=== PATIENT | male | born 1945 | race African-American/Black ===

== ENCOUNTER 2020-02-19 08:49 | Outpatient (CLI) | payer MEDICARE ==
--- NOTE | 2020-02-19 10:05 | CT ---
CT CHEST WITHOUT CONTRAST: INDICATION: Atherosclerotic coronary disease is given as the reason for exam. Hypertension. FINDINGS: The lungs are clear of infiltrate. There is no evidence of effusion. Mild interstitial thickening i n the periphery of both lungs is probably chronic. There is mild cardiomegaly and mild vascular engo rgement. There is a 5 mm calcified nodule in the left lower lobe. No other evidence of pulmonary ma ss or nodule. The mediastinum is unremarkable. Images through the upper abdomen unremarkable. Osse ous structures unremarkable. Thoracic vertebrae maintain normal height and alignment. There is prom inent coronary artery calcification seen in all visualized coronary arteries. IMPRESSION: 1. No acute lung process. 2. Mild interstitial thickening, probably chronic. Calcified granuloma in the left lower lobe. POS: AH
== END 2020-02-19 08:50 | disposition home or self-care (01) ==
LOC: BICCT 08:49
PROVIDERS: ATTEND Family Medicine
DX: I25.10 Atherosclerotic heart disease of native coronary artery without angina pectoris (principal); J84.89 Other specified interstitial pulmonary diseases; J84.10 Pulmonary fibrosis, unspecified; Z77.090 Contact with and (suspected) exposure to asbestos
CPT/HCPCS: 71250

== ENCOUNTER 2020-05-10 02:36 | Inpatient (IN) | payer MEDICARE, OTHER ==
[2020-05-10] MEDS ORDERED: Furosemide 40 MG/4 ML VIAL ONE (03:16)
[2020-05-10 03:25] LABS: #Basophils 0.1 thou/uL (0.0-0.2); #Eosinphils 0.4 thou/uL (0.0-0.7); #Monocytes 1.1 thou/uL (0.11-0.59); #Neutrophils 7.7 thou/uL (1.40-6.50); %Basophils 1.1 % (0.0-1.0); %Eosinophils 3.3 % (0.0-10.0); %Lymphocytes 17.8 % (21.0-51.0); %Monocytes 9.4 % (0.0-10.0); %Neutrophils 68.5 % (42.0-75.0); Hemoglobin 11.4 g/dL (14.0-18.0); Mean Corpuscular HGB CONC 33.7 g/dL (32.0-36.0); Mean Corpuscular Hemoglobin 29.1 pg (27.0-31.0); Mean Corpuscular Volume 86.1 fL (78.0-98.0); Mean Platelet Volume 7.1 fL (7.4-10.4); Platelet Count 274 thou/uL (130-400); RBC Distribution Width 13.9 % (11.5-14.5); Red Blood Cell (RBC) Count 3.92 mill/uL (4.70-6.10); White Blood Cell (WBC) Count 11.3 thou/uL (4.8-10.8)
[2020-05-10 03:45] LABS: ALT (SGPT) 18 U/L (8-55); AST (SGOT) 17 U/L (5-34); Albumin 4.3 g/dL (3.4-4.8); Alkaline Phosphatase 115 U/L (40-110); Anion Gap 16 mmol/L (10-20); BUN (Urea Nitrogen) 36 mg/dL (8.4-25.7); Bilirubin, Total 0.8 mg/dL (0.2-1.2); Calc. Creatinine Clearance 0 mL/min (70-130); Calcium 8.9 mg/dL (7.8-10.44); Carbon Dioxide 18 mmol/L (23-31); Chloride 102 mmol/L (98-107); Estimated GFR-MDRD 26; Globulin 2.9 g/dL (2.4-3.5); Glucose 225 mg/dL (83-110); Potassium 3.9 mmol/L (3.5-5.1); Protein, Total 7.2 g/dL (5.8-8.1); Sodium 132 mmol/L (136-145)
[2020-05-10 04:07] LABS: CKMB 2.3 ng/mL (0-6.6)
[2020-05-10] MEDS ORDERED: Enoxaparin Sodium 100 MG/ML SYRINGE ONE (04:08)
[2020-05-10 06:33] VITALS: BMI 31.4
[2020-05-10 07:08] LABS: Troponin I 0.039 ng/mL (< 0.028)
--- NOTE | 2020-05-10 08:01 | RAD ---
EXAM: Single view of the chest HISTORY: Shortness of breath COMPARISON: 06/16/2016 FINDINGS: Single view of the chest shows a normal sized cardiomediastinal silhouette. There are bilat eral lower lobe airspace opacities consistent with infiltrates. Trace bilateral pleural effusions may be present. No acute osseous abnormality. IMPRESSION: Bilateral lower lobe infiltrates
[2020-05-10] MEDS ORDERED: Acetaminophen 325 MG TAB PO PRN (08:25)
[2020-05-10] MEDS ORDERED: Senokot S 8.6-50 MG TAB PO PRN (08:25)
[2020-05-10] MEDS ORDERED: HYDROcodone/Acetaminophen 10/325 mg Tablet PO PRN (08:40)
[2020-05-10] MEDS ORDERED: Dextrose 5% in Water 1,000 ML IV PRN (08:44)
[2020-05-10] MEDS ORDERED: HumaLOG 300 UNITS/3 ML VIAL SC PRN (08:44)
[2020-05-10] MEDS ORDERED: Dextrose 50% Abboject 50 ML SYRINGE SLOW IVP PRN (08:44)
--- NOTE | 2020-05-10 08:56 | PDOC.HHP ---
Hospitalist HPI - History of Present Illness Shortness of breath History of Present Illness: Patient is a 74-year-old male with a history of a prior admission to this facility at which time he had an echocardiogram revealing a preserved ejection fraction but some element of diastolic dysfunction. Patient follows with lineworker at [facility]. He is not sure if he has had any stress testing or echocardiogram since his prior admission here. He also has chronic kidney disease and follows with Dr. Vargas. His primary care provider is Dr. Evans. Patient presented to the emergency department. He tells me that about a week ago he was carrying some groceries and felt some aching in his legs and felt a little short of breath and he rested a bit and felt better. A day or 2 later he decided to go for a walk but was unable to do much because of poor tolerance to the exercise. He blamed both of these issues initially on a bad back. Last night however the patient said he tried to go to bed but was feeling short of breath when lying flat he had some epigastric xiphoid area burning sensation as well when he got up and sat in a recliner for a while he felt better but when he tried to go back to bed the symptoms recurred and therefore he called an ambulance. He specifically says the sensation in the xiphoid area was not "pain". He does not have symptoms sitting upright or at rest. He usually sleeps with 3 pillows. ED Course: In the emergency department the patient was noted to have an elevated d-dimer. He cannot get a VQ scan because of his renal function. He was given a therapeutic dose of Lovenox. He was also felt to possibly have some congestive heart failure with volume overload and was given 1 dose of Lasix. Patient reports that he has voided 3 times since receiving that. Hospitalist ROS - Review of Systems Constitutional: denies: fever, chills Respiratory: reports: shortness of breath. denies: cough Cardiovascular: reports: orthopnea, edema (He reports edema in his lower extremities for about a year). denies: chest pain (Although he did have a burning sensation in the xiphoid area.) Gastrointestinal: denies: nausea, vomiting, abdominal pain Genitourinary: denies: dysuria, frequency, incontinence All other systems reviewed; all pertinent +/- noted in HPI/Subj Hospitalist History - Past Medical History Source: patient Cardiac: reports: CAD (Reports a history of an AK in 1969), HTN, Hyperlipidemia Renal/: reports: Chronic renal failure (Stage IV) Endocrine: reports: Diabetes (Type II) Other Medical History: Allergic rhinitis - Past Surgical History Past Surgical History: reports: Other (Back surgery) - Family History Family History: reports: cardiac disorder (Suspected that both of his parents may have in their 70s of MIs.) - Social History Smoking Status: Never smoker Alcohol: reports: None Drugs: reports: none Living Situation: With Family - Exam General Appearance: NAD, awake alert General - other findings: Obese Eye: PERRL, anicteric sclera ENT: normocephalic atraumatic, no oropharyngeal lesions, moist mucosa Neck: supple, no JVD Heart: RRR, no murmur, no gallops, no rubs, normal peripheral pulses Respiratory: CTAB, no wheezes, no rales, no ronchi, normal chest expansion, no tachypnea, normal percussion Gastrointestinal: soft, non-tender, non-distended, normal bowel sounds, no palpable masses, no hepatomegaly, no splenomegaly, no bruit Extremities: 1+ LE edema (Bilateral lower extremities) Skin: normal turgor, no lesions, no rashes Neurological: cranial nerve grossly intact, normal sensation to touch, no weakness, no focal deficits, no new deficit Musculoskeletal: normal tone, normal strength, no muscle wasting Psychiatric: normal affect, normal behavior, A&O x 3 Hospitalist Results - Labs Result Diagrams: 05/10/20 03:15 05/10/20 03:15 Lab results: WBC 11.3 thou/uL (4.8-10.8) H 05/10/20 03:15 Hgb 11.4 g/dL (14.0-18.0) L 05/10/20 03:15 Hct 33.7 % (42.0-52.0) L 05/10/20 03:15 MCV 86.1 fL (78.0-98.0) 05/10/20 03:15 Plt Count 274 thou/uL (130-400) 05/10/20 03:15 Neutrophils % 68.5 % (42.0-75.0) 05/10/20 03:15 Sodium 132 mmol/L (136-145) L 05/10/20 03:15 Potassium 3.9 mmol/L (3.5-5.1) 05/10/20 03:15 Chloride 102 mmol/L (98-107) 05/10/20 03:15 Carbon Dioxide 18 mmol/L (23-31) L 05/10/20 03:15 BUN 36 mg/dL (8.4-25.7) H 05/10/20 03:15 Creatinine 2.89 mg/dL (0.7-1.3) H 05/10/20 03:15 Glucose 225 mg/dL (83-110) H 05/10/20 03:15 Calcium 8.9 mg/dL (7.8-10.44) 05/10/20 03:15 Total Bilirubin 0.8 mg/dL (0.2-1.2) 05/10/20 03:15 AST 17 U/L (5-34) 05/10/20 03:15 ALT 18 U/L (8-55) 05/10/20 03:15 Alkaline Phosphatase 115 U/L (40-110) H 05/10/20 03:15 CK-MB (CK-2) 2.3 ng/mL (0-6.6) 05/10/20 03:15 Troponin I 0.039 ng/mL (< 0.028) H 05/10/20 06:30 B-Natriuretic Peptide 269.1 pg/mL (0-100) H 05/10/20 03:15 Serum Total Protein 7.2 g/dL (5.8-8.1) 05/10/20 03:15 Albumin 4.3 g/dL (3.4-4.8) 05/10/20 03:15 - EKG Interpretation EKG: Sinus rhythm with no ischemic changes - Radiology Interpretation Chest x-ray Status: image reviewed by me, report reviewed by me (Bilateral lower lobe infiltrates.) Hospitalist H&P A/P - Problem (1) Shortness of breath Code(s): R06.02 - SHORTNESS OF BREATH Status: Acute (2) CKD (chronic kidney disease), stage IV Code(s): N18.4 - CHRONIC KIDNEY DISEASE, STAGE 4 (SEVERE) Status: Acute (3) Pneumonia Code(s): J18.9 - PNEUMONIA, UNSPECIFIED ORGANISM Status: Acute (4) Pulmonary edema Code(s): J81.1 - CHRONIC PULMONARY EDEMA Status: Acute (5) Hyponatremia Code(s): E87.1 - HYPO-OSMOLALITY AND HYPONATREMIA Status: Acute (6) Chest pain Code(s): R07.9 - CHEST PAIN, UNSPECIFIED Status: Acute Qualifiers: Chest pain type: precordial chest pain Qualified Code(s): R07.2 - Precordial pain (7) DM type 2 (diabetes mellitus, type 2) Status: Chronic Qualifiers: Diabetes mellitus terminal supervisor insulin use: unspecified skilled nursing insulin use status Diabetes mellitus complication status: without complication Qualified Code(s): E11.9 - Type 2 diabetes mellitus without complications (8) Dyslipidemia Code(s): E78.5 - HYPERLIPIDEMIA, UNSPECIFIED Status: Chronic (9) HTN (hypertension) Code(s): I10 - ESSENTIAL (PRIMARY) HYPERTENSION Status: Chronic Qualifiers: Hypertension type: essential hypertension Qualified Code(s): I10 - Essential (primary) hypertension (10) History of coronary artery disease Code(s): Z86.79 - PERSONAL HISTORY OF OTHER DISEASES OF THE CIRCULATORY SYSTEM Status: Acute - Plan Plan: Shortness of breath: Several potential possibilities exist. Patient has evidence of bilateral lower lobe infiltrates on chest x-ray. I suspect this is more likely dependent pulmon gurinder edema. However will need to consider that possibility as well. Has an elevated d-dimer which could represent pulmonary embolus or could potentially raise concern for COVID. Oxygen as needed. He has had a therapeutic dose of Lovenox. He is unable to get a CT angiogram of the chest because of his renal function. Have ordered a pulmonary perfusion scan and lower extremity Dopplers. Pneumonia: Again patient has bilateral lower lobe infiltrates. He does not have a cough and his symptoms are not typical of a pneumonia. He has a COVID test pending although the infiltrates do not appear consistent with COVID nor do his symptoms. We will go ahead and cover with some antibiotics. We will treat for community-acquired pneumonia with Rocephin and azithromycin. Will get follow-up chest x-ray after some diuresis. Pulmonary edema: We will concern the infiltrates represent dependent pulmonary edema. He has received a dose of diuretics in the emergency department I will obtain an echocardiogram as this could be some diastolic dysfunction. His ejection fraction in the past has been relatively well-preserved. His BNP was not significantly elevated. However, he does have orthopnea and some peripheral edema. Will obtain records from his lineworker if possible. Coronary artery disease: Patient has a history of an AK in 1969. He did have a negative stress test here several years ago. Will attempt to obtain records from his lineworker office to see if he has had any recent provocative testing. Diabetes: Continue with his usual home medications of Januvia and glipizide. Will continue sliding scale as needed and diabetic diet. Hypertension: Continue with his lisinopril. Hyperlipidemia: Continue atorvastatin at the home dose. Hyponatremia: Likely due to the chronic kidney disease. If there is a component of heart f ailure that could be contributory as well. We will need to look for the underlying issues. PUD prophylaxis: PPI DVT prophylaxis: Patient is currently receiving therapeutic doses of Lovenox for concern for possible PE.
--- NOTE | 2020-05-10 09:36 | ULT ---
EXAM: Bilateral lower extremity venous Doppler US HISTORY: bilateral lower extremity edema and pain FINDINGS: Grayscale, color-flow, Doppler evaluation, spectral analysis of the bilateral lower extremities venou s structures is performed with 2-D imaging. The bilateral common femoral, superficial femoral, popliteal, posterior tibial, proximal greater saphenous and profunda femoral veins are imaged. There is normal luminal compressibility, flow, and augmentation in the visualized deep venous structu res of the bilateral lower extremities. IMPRESSION: No evidence of a deep vein thrombosis in either lower extremity.
[2020-05-10 09:58] LABS: Troponin I 0.072 ng/mL (< 0.028)
[2020-05-10] MEDS ORDERED: Atenolol 50 MG TAB PO SCH (10:00)
[2020-05-10] MEDS ORDERED: Famotidine 20 MG TAB PO SCH (10:00)
[2020-05-10] MEDS ORDERED: Aspirin 81 mg Enteric Coated Tablet PO SCH (10:00)
[2020-05-10] MEDS ORDERED: Furosemide 40 MG TAB PO SCH (10:00)
[2020-05-10] MEDS ORDERED: Lisinopril 20 MG TAB PO SCH (10:00)
[2020-05-10] MEDS ORDERED: Alogliptin 6.25 MG TAB PO SCH (10:00)
[2020-05-10] MEDS ORDERED: NIFEdipine XL 60 MG TAB PO SCH (10:00)
[2020-05-10] MEDS: Famotidine 20 MG TAB PO SCH (10:20)
--- NOTE | 2020-05-10 11:00 | CON ---
DATE OF CONSULTATION: 05/10/2020 CONSULTING PHYSICIAN: Dr. Sorensen. REASON FOR CONSULTATION: Acute kidney injury on chronic kidney disease. REASON FOR ADMISSION: Shortness of breath. HISTORY OF PRESENT ILLNESS: This 74-year-old male with history of coronary artery disease, CKD, hypertension, diabetes, CHF, came to the hospital with shortness of breath and is being treated for CHF exacerbation. The patient does follow with at [facility]. His renal function is slightly off from his normal. He is feeling much better today. No fever or chills. He was having orthopnea at home. No nausea, vomiting, or diarrhea. PAST MEDICAL HISTORY: Positive for coronary artery disease, hypertension, hyperlipidemia, CKD stage 4, type 2 diabetes. PAST SURGICAL HISTORY: Back surgery. HOME MEDICATIONS: Reviewed. ALLERGIES: NO KNOWN DRUG ALLERGIES. SOCIAL HISTORY: No smoking, alcohol, or illicit drug use. FAMILY HISTORY: No history of kidney disease. REVIEW OF SYSTEMS: CONSTITUTIONAL: Negative for weight loss or gain, ability to conduct usual activities. SKIN: Negative for rash, itching. EYES: Negative for double vision, pain. ENT/MOUTH: Negative for nose bleeding, neck stiffness, pain, tenderness. CARDIOVASCULAR: Negative for palpitations, dyspnea on exertion, orthopnea. RESPIRATORY: Negative for shortness of breath, wheezing, cough, hemoptysis, fever or night sweats. GASTROINTESTINAL: Negative for poor appetite, abdominal pain, heartburn, nausea, vomiting, constipation, or diarrhea. GENITOURINARY: Negative for urgency, frequency, dysuria, nocturia. MUSCULOSKELETAL: Negative for pain, swelling. NEUROLOGIC/PSYCHIATRIC: Negative for anxiety, depression. ALLERGY/IMMUNOLOGIC: Negative for skin rash, bleeding tendency. PHYSICAL EXAMINATION: GENERAL: This is a well-built male, in no apparent distress. VITAL SIGNS: Temperature 99, pulse 85, respiratory rate 18, blood pressure 155/80. HEENT: Atraumatic, normocephalic. Oral mucosa moist. NECK: Supple. CV: S1 and S2. Regular rate and rhythm. RESPIRATORY: Clear. GASTROINTESTINAL: Abdomen is soft. MUSCULOSKELETAL: 1+ edema. DERMATOLOGIC: No skin rash. NEUROLOGIC: Alert and awake. PSYCHIATRIC: Mood and affect are normal. LABORATORY DATA: Potassium 3.9, sodium 132, BUN is 36, and creatinine is 2.89. ASSESSMENT AND PLAN: 1. Acute kidney injury on chronic kidney disease stage 4. Renal function close to his baseline. 2. Cardiorenal syndrome. Agree with diuretics as tolerated. 3. Mild anemia. 4. History of hypertension. 5. Edema, controlled. 6. The patient is feeling better, okay with diuretics with close monitoring of renal function and electrolytes. We will recommend to hold lisinopril if renal function shows worsening during diuresis. We will follow. Thank you for the consult. Job ID: [id number]
--- NOTE | 2020-05-10 13:39 | NM ---
NM Lung Perfusion Paticulate HISTORY: Shortness of breath, elevated d-dimer RADIOPHARMACEUTICAL: 5.4 mCi technetium 99m-MAA injected intravenously FINDINGS: Correlation is made with the chest radiograph of the same date. Fairly homogeneous tracer distribution is seen in the lungs bilaterally without pleural-based, wedge- shaped segmental or subsegmental defects. IMPRESSION: No evidence of pulmonary embolism.
[2020-05-10] MEDS ORDERED: hydrALAZINE 20 MG/ML VIAL SLOW IVP PRN (14:28)
[2020-05-10] MEDS: glipiZIDE 5 MG TAB PO SCH (16:57)
[2020-05-10] MEDS: Labetalol HCl 100 MG/20 ML VIAL SLOW IVP PRN ×2 (16:58→21:25)
[2020-05-10 17:18] LABS: SARS-CoV-2 MS2 Positive; SARS-CoV-2 N Gene Negative; SARS-CoV-2 S Gene Negative; SARS-CoV-2 by NAA Not Detected (NotDetected); SARS-CoV-2 orf1ab Negative
[2020-05-10] MEDS: Atorvastatin Calcium 40 MG TAB PO SCH (21:24)
[2020-05-10] MEDS: Montelukast Sodium 10 mg Tablet PO SCH (21:24)
[2020-05-11] MEDS: Lisinopril 20 MG TAB PO SCH (08:20)
[2020-05-11] MEDS: glipiZIDE 5 MG TAB PO SCH ×2 (08:20→18:09)
[2020-05-11] MEDS: Alogliptin 6.25 MG TAB PO SCH (08:20)
[2020-05-11] MEDS: Aspirin 81 mg Enteric Coated Tablet PO SCH (08:20)
[2020-05-11] MEDS: Famotidine 20 MG TAB PO SCH (08:23)
[2020-05-11] MEDS ORDERED: NIFEdipine XL 60 MG TAB PO SCH ×2 (09:00→21:00)
[2020-05-11] MEDS ORDERED: Atenolol 50 MG TAB PO SCH ×2 (09:00→21:00)
--- NOTE | 2020-05-11 11:15 | PRG ---
DATE OF SERVICE: 05/11/2020 SUBJECTIVE: Patient was seen and examined at bedside and overnight events noted. Patient denies any shortness of breath or chest pain or palpitation. No history of nausea or vomiting or diarrhea or fever or chills or cramps. OBJECTIVE: GENERAL: This is a well built male, in no acute distress. VITAL SIGNS: Temperature 98.5. Heart rate 85. Respiratory rate. Blood pressure 156/79. HEENT: Atraumatic, normocephalic. Oral mucosa is moist NECK: Supple. CARDIOVASCULAR: S1, S2 heard. Rate and rhythm regular. RESPIRATORY: Clear to auscultation. GASTROINTESTINAL: Abdomen is soft. MUSCULOSKELETAL: No tenderness. No edema. DERMATOLOGIC: No skin rash. NEUROLOGIC: Alert and awake and oriented X3. No focal neurologic deficits. Moving all the extremities. PSYCHIATRIC: Mood and affect normal. LABORATORY DATA: Not done today. ASSESSMENT AND PLAN: 1. Acute kidney injury on chronic kidney disease stage 4. 2. Cardiorenal syndrome 3. Edema 4. H/o Hypertension 5. Mild anemia Renal function has been stable. Continue diuretics with cautious monitoring of renal function and electrolytes. Avoid nephrotoxins. Monitor labs. We will follow. Job ID: [id number] MTDD
--- NOTE | 2020-05-11 14:08 | EKG ---
Test Reason : SOB Blood Pressure : / mmHG Vent. Rate : 094 BPM Atrial Rate : 094 BPM P-R Int : 162 ms QRS Dur : 096 ms QT Int : 370 ms P-R-T Axes : 031 049 063 degrees QTc Int : 462 ms Sinus rhythm with marked sinus arrhythmia Otherwise normal ECG Confirmed by NII LUCAS ([id number]), website/blog editor LUCIO SHELLEY ([id number]) on 05/11/2020 2:08:35 PM Referred By: Confirmed By:NII LUCAS
[2020-05-11 14:38] LABS: Troponin I 0.093 ng/mL (< 0.028)
[2020-05-11 19:08] LABS: Troponin I 0.075 ng/mL (< 0.028)
--- NOTE | 2020-05-11 20:39 | PDOC.HOSPP ---
- Subjective Encounter Date: 05/11/20 Encounter Time: 14:00 Subjective: pt wants to go home. he feels ok no sob, son at bedside. after explaining that there may be a risk of cardiac ishemia, he agreed to stay further. trop high and needs risk stratification and he said that he does not want nuc stress as he had remotely and did not feel good with that medicien going through [facility]. - Objective Vital Signs & Weight: Vital Signs (12 hours) Temp Pulse Resp BP Pulse Ox 05/11/20 19:42 98.2 F 82 16 158/76 H 98 05/11/20 16:00 97.0 F L 84 17 157/81 H 95 05/11/20 12:00 96.6 F L 86 17 155/81 H 96 Weight Weight 211 lb 1.6 oz I&O: 05/10/20 05/11/20 05/12/20 06:59 06:59 06:59 Intake Total 960 720 Output Total 250 2700 1100 Balance -256 -7293 -268 Result Diagrams: 05/10/20 03:15 05/10/20 03:15 Additional Labs: Accuchecks 05/11/20 05/11/20 05/11/20 20:28 16:08 11:01 POC Glucose 218 H 150 H 187 H 05/11/20 05/10/20 06:06 23:48 POC Glucose 132 H 156 H Hospitalist ROS - Medication Medications: Active Medications Generic Name Dose Route Start Last Admin Trade Name Freq PRN Reason Stop Dose Admin Alogliptin Benzoate 6.25 mg 05/11/20 09:00 05/11/20 08:20 Alogliptin 6.25 Mg Tab PO 6.25 mg DAILY KAMALA Administration Aspirin 81 mg 05/11/20 09:00 05/11/20 08:20 Aspirin 81 Mg Enteric Coated Tablet PO 81 mg DAILY KAMALA Administration Atorvastatin Calcium 40 mg 05/10/20 21:00 05/10/20 21:24 Atorvastatin Calcium 40 Mg Tab PO 40 mg HS KAMALA Administration Famotidine 20 mg 05/10/20 09:00 05/11/20 08:23 Famotidine 20 Mg Tab PO 20 mg DAILY KAMALA Administration Glipizide 5 mg 05/10/20 16:30 05/11/20 18:09 Glipizide 5 Mg Tab PO 5 mg BID-AC KAMALA Administration Labetalol HCl 10 mg 05/10/20 16:42 05/10/20 21:25 Labetalol Hcl 100 Mg/20 Ml Vial SLOW IVP 10 mg Q4H PRN Administration SBP Greater Than 180 Lisinopril 20 mg 05/11/20 09:00 05/11/20 08:20 Lisinopril 20 Mg Tab PO 20 mg DAILY KAMALA Administration Montelukast Sodium 10 mg 05/10/20 21:00 05/10/20 21:24 Montelukast Sodium 10 Mg Tablet PO 10 mg QPM KAMALA Administration - Exam Eye: PERRL ENT: normocephalic atraumatic Heart: RRR Respiratory: CTAB Gastrointestinal: soft, normal bowel sounds Hosp A/P - Plan Shortness of breath: Several potential possibilities exist. Patient has evidence of bilateral lower lobe infiltrates on chest x-ray. I suspect this is more likely dependent pulmonary edema. However will need to consider that possibility as well. Has an elevated d-dimer which could represent pulmonary embolus or could potentially raise concern for COVID. Oxygen as needed. He has had a therapeutic dose of Lovenox. He is unable to get a CT angiogram of the chest because of his renal function. Have ordered a pulmonary perfusion scan and lower extremity Dopplers. Pneumonia: bilateral lower lobe infiltrates. H -Rocephin and azithromycin. -covid neg Pulmonary edema: -diuresis imrpoved his sxs -echo ef 55%- DD - may need po diuresis upon dc as prn, as he has no sxs currently and euvolumic Coronary artery disease: Patient has a history of an NV in 1970. He did have a negative stress test here several years ago. now NSTEMI - neeed to address this prior to dc - as pt not comfortable getting nuc stress, requested cardiology consult for their input; Diabetes: -Januvia and glipizide. - - SSI Hypertension: Continue with his lisinopril. Hyperlipidemia: Continue atorvastatin at the home dose. Hyponatremia: Likely due to the chronic kidney disease. pending cardiol..evaluation.
[2020-05-11] MEDS: Atorvastatin Calcium 40 MG TAB PO SCH (20:43)
[2020-05-11] MEDS: NIFEdipine XL 60 MG TAB PO SCH (20:43)
[2020-05-11] MEDS: Montelukast Sodium 10 mg Tablet PO SCH (20:43)
--- NOTE | 2020-05-12 01:08 | CON ---
DATE OF CONSULTATION: HISTORY: Francisca Huynh is a 74-year-old black male who states in 1979 that he had a myocardial infarction while living in [place]. He apparently underwent cardiac catheterization at that time, but has never had another catheterization. He has had nuclear scans and had one here in May 2016, which revealed no evidence of ischemia. He has been followed by Dr. Rice in the past and was seen in the office up until 2018. However, currently, he sees Dr. [facility] at [facility]. He was doing fairly well except for occasional leg edema until late on the evening of May 09. He was feeling increasingly short of breath and this was worse if he would lie supine in bed. He ultimately called the emergency room and came to the hospital in the heat treater hours of April. He has had mildly elevated troponin I and cardiology consultation was requested. He initially had an elevated D-dime. Due to his chronic kidney disease., he underwent lung scan, which revealed low probability of pulmonary embolism. He also had lower extremity venous ultrasound, which revealed no evidence of deep venous thrombosis. He denies any chest discomfort to me. PAST MEDICAL HISTORY: Hypertension, chronic kidney disease, diabetes, hyperlipidemia, coronary artery disease with history of SD in 1979. OPERATIONS: Back surgery. MEDICATIONS: 1. Allopurinol 300 daily. 2. Xanax 0.5 b.i.d. 3. Aspirin 81 daily. 4. Atenolol 50 daily. 5. Atorvastatin 40 mg at bedtime. 6. Furosemide 20 every other day. 7. Glucotrol 10 mg b.i.d. 8. Lisinopril 20 daily. 9. Singulair 10 mg daily. 10. Nifedipine 60 mg b.i.d. 11. Januvia 25 mg daily. ALLERGIES: NONE. SOCIAL HISTORY: He does not smoke or drink. REVIEW OF SYSTEMS: Unremarkable except as noted above. PHYSICAL EXAMINATION: VITAL SIGNS: 158/76, pulse of 82. On the first day after admission, he diuresed 2700 mL. HEENT: PERRL. NECK: Supple. CHEST: Clear. CARDIAC: S1 and S2 normal without any S3, S4, or murmurs. ABDOMEN: Normal bowel sounds without tenderness, organomegaly. EXTREMITIES: Revealed trace pretibial edema. NEUROLOGIC: Grossly intact. LABORATORY DATA: EKG revealed normal sinus rhythm with sinus arrhythmias, otherwise unremarkable. Echocardiogram was technically difficult. Ejection fraction was 50% to 55% with evidence of diastolic dysfunction. There was mild mitral and tricuspid regurgitation. Hemoglobin 11.4, hematocrit 33.7, white count 11,300, platelets 274,000, D-dimer 1.45. Troponin I is up to 0.093. Sodium 132, potassium 3.9, chloride 102, carbon dioxide 18, BUN 36, creatinine 2.89, BNP 269.2. IMPRESSION: 1. Jroyf-wr-sawiffd diastolic heart failure. 2. History of myocardial infarction in 1979. 3. Hypertension, poorly controlled. 4. Diabetes. 5. Hyperlipidemia. 6. History of coronary artery disease and myocardial infarction. 7. [id number] myocardial infarction type 2 secondary to his renal insufficiency and demand ischemia. RECOMMENDATIONS: The patient continued to be diuresed and probably needs to be on a higher daily dose of furosemide at home. Also, with his current blood pressure and diastolic dysfunction, I will increase the atenolol to 75 mg q.a.m. and this may need to be increased further. We will follow the patient with you. Job ID: [id number] [facility] MED[facility] CENTERKanchan
[2020-05-12 04:54] LABS: Anion Gap 14 mmol/L (10-20); BUN (Urea Nitrogen) 32 mg/dL (8.4-25.7); Calc. Creatinine Clearance 34 mL/min (70-130); Calcium 9.1 mg/dL (7.8-10.44); Carbon Dioxide 18 mmol/L (23-31); Cardiac Risk 3.7 (Less than 4.5); Chloride 108 mmol/L (98-107); Cholesterol 130 mg/dl (< 200 Desired); Estimated GFR-MDRD 29; Glucose 134 mg/dL (83-110); HDL Cholesterol 35 mg/dL (>60 Neg Risk); LDL Cholesterol, Calculated 76 mg/dL; Magnesium 2.3 mg/dL (1.6-2.6); Potassium 4.3 mmol/L (3.5-5.1); Sodium 136 mmol/L (136-145); Triglycerides 95 mg/dL (Less than 150)
[2020-05-12] MEDS: glipiZIDE 5 MG TAB PO SCH (08:23)
[2020-05-12] MEDS: Lisinopril 20 MG TAB PO SCH (08:50)
[2020-05-12] MEDS: Aspirin 81 mg Enteric Coated Tablet PO SCH (08:50)
[2020-05-12] MEDS: NIFEdipine XL 60 MG TAB PO SCH (08:50)
[2020-05-12] MEDS: Alogliptin 6.25 MG TAB PO SCH (08:50)
[2020-05-12] MEDS: Famotidine 20 MG TAB PO SCH (08:50)
[2020-05-12] MEDS ORDERED: NIFEdipine XL 60 MG TAB PO SCH (09:00)
--- NOTE | 2020-05-12 12:35 | PRG ---
DATE OF SERVICE: 05/12/2020 SUBJECTIVE: Patient was seen and examined at bedside and overnight events noted. Patient denies any shortness of breath or chest pain or palpitation. No history of nausea or vomiting or diarrhea or fever or chills or cramps. OBJECTIVE: GENERAL: This is a well-built male, in no apparent distress. VITAL SIGNS: Temperature 97.7. Heart rate 77. Respiratory rate 15. Blood pressure 158/91. HEENT: Atraumatic, normocephalic. Oral mucosa is moist NECK: Supple. CARDIOVASCULAR: S1, S2 heard. Rate and rhythm regular. RESPIRATORY: Clear to auscultation. GASTROINTESTINAL: Abdomen is soft. MUSCULOSKELETAL: No tenderness. No edema. DERMATOLOGIC: No skin rash. NEUROLOGIC: Alert and awake and oriented X3. No focal neurologic deficits. Moving all the extremities. PSYCHIATRIC: Mood and affect normal. LABORATORY DATA: Potassium is 4.3, BUN is 32, creatinine is 2.6. ASSESSMENT AND PLAN: 1. Acute kidney injury on chronic kidney disease stage 4, stable. 2. Edema. 3. Hypertension. 4. Cardiorenal syndrome. 5. Mild anemia. 6. Renal function is stable. We will follow. Job ID: [id number]
[2020-05-12] MEDS ORDERED: Furosemide 20 MG TAB PO SCH ×2 (14:00)
[2020-05-12 17:45] VITALS: BP 149/86; TEMP 98.1
[2020-05-12] MEDS ORDERED: Atorvastatin Calcium 40 MG TAB PO SCH (21:00)
--- NOTE | 2020-05-13 07:01 | DIS ---
DATE OF ADMISSION: 05/10/2020 DATE OF DISCHARGE: 05/12/2020 DISCHARGE DIAGNOSES: 1. Shortness of breath, multifactorial. 2. Pulmonary edema. 3. Coronary artery disease. 4. Type 2 diabetes mellitus. 5. Hypertension. 6. Hyperlipidemia. 7. Hyponatremia, that is resolved. 8. Chronic kidney disease, stage 3/4. 9. Abnormal troponin, type 2 metabolic mismatch, demand ischemia. PERTINENT LAB FINDINGS: A1c 7.0. LDL 76, TSH 2.2. Creatinine improved from 2.8 to 2.63. His baseline creatinine is somewhere between 2.11 to 2.89. PHYSICAL EXAMINATION: On the day of discharge, the patient appeared well. His blood pressure is slightly still labile, but improved overall. He is quite anxious to go home. His family at bedside. Temperature 97.7, pulse 77, blood pressure 158/91 and with a previous reading 135/75. The patient appears well. His lower extremity edema improved. He has no shortness of breath with ambulation. MEDICATIONS: We will continue with his home medication except the following changes; 1. Nifedipine discontinued from 60 twice a day to 30 mg daily. 2. Lisinopril 20 mg discontinued and low dose 5 mg daily given in the context of giving Lasix. 3. Lasix 20 mg twice a day. 4. Atenolol 75 mg daily. Potassium chloride supplement 10 mEq daily prescription given. HOSPITAL COURSE: A 74-year-old male had GA remotely in while he was in [place], presented with shortness of breath. It seems increasing his Lasix improved his symptoms. He had nuclear scan in May 2016 and he was followed in the past by Dr. Rice and Dr. Rajinder Bauer at [facility] lately. His leg edema was worse that improved with IV diuresis. He had elevated troponin 0.07 and 0.09. I checked with airplane navigator for another ischemic workup and it was felt that this could be due to his chronic kidney disease and not ischemia. He had D- dimer elevated. He went through lung scan which revealed low probability for pulmonary embolism. He also had a Doppler negative for DVT. Cardiology recommended increasing the atenolol dose as well as increasing the Lasix dose. With these changes, he will be followed by Dr. Bauer at [facility] in 2 weeks. His echo showed EF of 55% with suggested diastolic dysfunction, hence increased dose in Lasix. DISCHARGE INSTRUCTIONS: Activity as tolerated. Regular diet. Follow up with the primary care physician in 1 week. Follow up with Dr. Bauer in 2 weeks. Discharge time took over 35 minutes. Job ID: [id number] [id number]
[2020-05-13] MEDS ORDERED: Lisinopril 5 MG TAB PO SCH (09:00)
[2020-05-13] MEDS ORDERED: NIFEdipine XL 30 MG TAB PO SCH (09:00)
== END 2020-05-12 16:20 | disposition home or self-care (01) | DRG 280 ==
LOC: ERS 02:36 → 2NO 06:15
PROVIDERS: ADMIT Internal Medicine; ATTEND Internal Medicine
DX: I13.0 Hypertensive heart and chronic kidney disease with heart failure and stage 1 through stage 4 chronic kidney disease, or unspecified chronic kidney disease (principal); J18.9 Pneumonia, unspecified organism; I21.A1 Myocardial infarction type 2; I50.33 Acute on chronic diastolic (congestive) heart failure; N18.4 Chronic kidney disease, stage 4 (severe); E87.1 Hypo-osmolality and hyponatremia; N17.9 Acute kidney failure, unspecified; E78.5 Hyperlipidemia, unspecified; J30.9 Allergic rhinitis, unspecified; I25.10 Atherosclerotic heart disease of native coronary artery without angina pectoris; E11.22 Type 2 diabetes mellitus with diabetic chronic kidney disease; D64.9 Anemia, unspecified; N18.9 Chronic kidney disease, unspecified; E78.00 Pure hypercholesterolemia, unspecified; Z79.899 Other long term (current) drug therapy; I25.2 Old myocardial infarction
CPT/HCPCS: 36415; 36416; 36600; 71045; 78451; 80048; 80053; 80061; 82553; 83036; 83735; 83880; 84443; 84484; 85025; 85379; 87635; 93005; 93306; 93970; 94760; 96372; 96374; A9540; J1650; J1940; U0003

== ENCOUNTER 2021-02-21 01:21 | Emergency (ER) | payer MEDICARE ==
[2021-02-21 02:03] LABS: #Basophils 0.1 thou/uL (0.0-0.2); #Eosinphils 0.3 thou/uL (0.0-0.7); #Lymphocytes 1.4 thou/uL (1.20-3.40); #Monocytes 0.8 thou/uL (0.11-0.59); #Neutrophils 6.6 thou/uL (1.40-6.50); %Basophils 0.5 % (0.0-1.0); %Eosinophils 3.6 % (0.0-10.0); %Lymphocytes 15.5 % (21.0-51.0); %Monocytes 8.5 % (0.0-10.0); %Neutrophils 71.8 % (42.0-75.0); Hemoglobin 12.2 g/dL (14.0-18.0); Mean Corpuscular Volume 88.6 fL (78.0-98.0); Mean Platelet Volume 7.4 fL (7.4-10.4); Platelet Count 253 thou/uL (130-400); RBC Distribution Width 13.8 % (11.5-14.5); Red Blood Cell (RBC) Count 3.94 mill/uL (4.70-6.10); White Blood Cell (WBC) Count 9.2 thou/uL (4.8-10.8)
[2021-02-21] MEDS ORDERED: Aspirin Chewable 81 MG TAB ONE (02:24)
[2021-02-21 02:27] LABS: ALT (SGPT) 14 U/L (8-55); AST (SGOT) 19 U/L (5-34); Albumin 4.2 g/dL (3.4-4.8); Alkaline Phosphatase 109 U/L (40-110); Anion Gap 18 mmol/L (10-20); BUN (Urea Nitrogen) 41 mg/dL (8.4-25.7); Bilirubin, Total 0.4 mg/dL (0.2-1.2); Calc. Creatinine Clearance 0 mL/min (70-130); Calcium 9.4 mg/dL (7.8-10.44); Carbon Dioxide 13 mmol/L (23-31); Chloride 108 mmol/L (98-107); Globulin 3.1 g/dL (2.4-3.5); Glucose 198 mg/dL (83-110); Lipase 23 U/L (8-78); Potassium 4.3 mmol/L (3.5-5.1); Protein, Total 7.3 g/dL (5.8-8.1); Sodium 135 mmol/L (136-145)
[2021-02-21] MEDS ORDERED: Nitroglycerin 2% Ointment 1 INCH/1 GM Packet ONE (03:32)
== END 2021-02-21 04:05 | disposition left against medical advice (07) ==
LOC: ERS 01:21
DX: R07.89 Other chest pain (principal); R06.2 Wheezing; I12.9 Hypertensive chronic kidney disease with stage 1 through stage 4 chronic kidney disease, or unspecified chronic kidney disease; N18.9 Chronic kidney disease, unspecified; E11.22 Type 2 diabetes mellitus with diabetic chronic kidney disease; E78.5 Hyperlipidemia, unspecified; E78.00 Pure hypercholesterolemia, unspecified; R60.0 Localized edema; Z79.82 Long term (current) use of aspirin; Z79.899 Other long term (current) drug therapy
CPT/HCPCS: 36415; 71045; 80053; 83690; 83880; 84484; 85025; 93005

== ENCOUNTER 2021-03-13 12:35 | Outpatient (CLI) | payer MEDICARE | END 2021-03-13 12:36 | disposition home or self-care (01) | LOC: DTY/OP 12:35 | PROVIDERS: ATTEND Family Medicine | DX: E11.22 Type 2 diabetes mellitus with diabetic chronic kidney disease (principal); N18.9 Chronic kidney disease, unspecified | CPT/HCPCS: 97802 ==

== ENCOUNTER 2021-05-07 14:47 | Inpatient (IN) | payer MEDICARE ==
[2021-05-07] MEDS ORDERED: Dextrose 5% in Water 1,000 ML IV PRN (21:02)
[2021-05-07] MEDS ORDERED: Dextrose 50% Abboject 50 ML SYRINGE SLOW IVP PRN (21:02)
[2021-05-07] MEDS ORDERED: Insulin Regular 300 UNITS/3 ML VIAL SC PRN (21:02)
[2021-05-07] MEDS ORDERED: Acetaminophen 325 MG TAB PO PRN (21:09)
[2021-05-07] MEDS ORDERED: Calcium Carbonate 500 MG ChewTAB PO PRN (21:09)
[2021-05-07] MEDS ORDERED: Ondansetron ODT 4 MG TAB PO PRN (21:09)
[2021-05-07] MEDS ORDERED: Ondansetron PF 4 MG/2 ML Vial IVP PRN (21:09)
[2021-05-07] MEDS ORDERED: Senokot S 8.6-50 MG TAB PO PRN (21:09)
[2021-05-07] MEDS ORDERED: Nitroglycerin 0.4 MG TAB (25 Tab Bottle) SL PRN (21:12)
[2021-05-07] MEDS ORDERED: Furosemide 40 MG/4 ML VIAL SLOW IVP SCH (21:15)
[2021-05-07] MEDS ORDERED: cloNIDine 0.1 MG TAB PO PRN (21:18)
[2021-05-07] MEDS ORDERED: NIFEdipine XL 60 MG TAB PO SCH (21:30)
[2021-05-07] MEDS ORDERED: Nitroglycerin 2% Ointment 1 INCH/1 GM Packet TOP SCH (22:00)
[2021-05-07] MEDS: Albumin 25% 25 GM/100 ML BOT IVPB SCH (22:05)
[2021-05-08] MEDS ORDERED: Furosemide 40 MG/4 ML VIAL SLOW IVP SCH ×4 (03:00→10:35)
[2021-05-08] MEDS: Nitroglycerin 2% Ointment 1 INCH/1 GM Packet TOP SCH ×4 (03:16→23:04)
[2021-05-08 04:15] LABS: #Lymphocytes 0.9 thou/uL (1.20-3.40); #Monocytes 1.6 thou/uL (0.11-0.59); #Neutrophils 16.9 thou/uL (1.40-6.50); %Basophils 0.1 % (0.0-1.0); %Eosinophils 0.1 % (0.0-10.0); %Lymphocytes 4.7 % (21.0-51.0); %Monocytes 8.2 % (0.0-10.0); %Neutrophils 86.9 % (42.0-75.0); Hemoglobin 12.4 g/dL (14.0-18.0); Mean Corpuscular HGB CONC 33.6 g/dL (32.0-36.0); Mean Corpuscular Hemoglobin 29.8 pg (27.0-31.0); Mean Corpuscular Volume 88.6 fL (78.0-98.0); Mean Platelet Volume 7.8 fL (7.4-10.4); Platelet Count 285 thou/uL (130-400); RBC Distribution Width 13.5 % (11.5-14.5); Red Blood Cell (RBC) Count 4.17 mill/uL (4.70-6.10); White Blood Cell (WBC) Count 19.4 thou/uL (4.8-10.8)
[2021-05-08] MEDS ORDERED: hydrALAZINE 20 MG/ML VIAL SLOW IVP PRN (04:18)
[2021-05-08] MEDS: Morphine 2 MG/ML VIAL SLOW IVP PRN ×2 (04:24→23:45)
[2021-05-08 04:40] LABS: Carbon Dioxide 17 mmol/L (23-31); Chloride 104 mmol/L (98-107); Potassium 4.3 mmol/L (3.5-5.1); Sodium 139 mmol/L (136-145)
[2021-05-08 04:41] LABS: Anion Gap 22 mmol/L (10-20); BUN (Urea Nitrogen) 47 mg/dL (8.4-25.7); Calc. Creatinine Clearance 24 mL/min (70-130); Calcium 9.7 mg/dL (7.8-10.44); Glucose 223 mg/dL (83-110)
[2021-05-08 05:02] LABS: CKMB 5.5 ng/mL (0-6.6)
[2021-05-08] MEDS: Albumin 25% 25 GM/100 ML BOT IVPB SCH (06:48)
[2021-05-08] MEDS ORDERED: Atenolol 50 MG TAB PO SCH (09:00)
[2021-05-08] MEDS: Aspirin 325 mg Enteric Coated Tablet PO SCH (09:45)
[2021-05-08] MEDS: NIFEdipine XL 60 MG TAB PO SCH ×2 (09:45→23:04)
[2021-05-08] MEDS: Famotidine 20 MG TAB PO SCH (09:45)
[2021-05-08] MEDS: Enoxaparin Sodium 30 MG/0.3 ML SYRINGE SC SCH (09:46)
[2021-05-08] MEDS: Insulin Regular 300 UNITS/3 ML VIAL SC PRN ×2 (09:50→17:09)
[2021-05-08] MEDS ORDERED: Heparin 10,000 UNITS/ 10 ML VIAL ONE (10:33)
[2021-05-08] MEDS ORDERED: Furosemide 100 MG/10 ML VIAL SLOW IVP SCH (10:45)
[2021-05-08] MEDS: Furosemide 100 MG/10 ML VIAL SLOW IVP SCH (14:15)
[2021-05-08 17:27] LABS: Hemoglobin A1c 6.4 % (4.0-6.0)
[2021-05-08 17:49] LABS: Cardiac Risk 2.6 (Less than 4.5)
[2021-05-08 18:31] LABS: HBSAB Concentration Less than 8.00 mIU/mL; Hep B Core Total Ab Non-Reactive (NonReactive); Hep B Core Total Index 0.07 S/CO (0-0.79); Hep B Surf AB Non-Reactive (NonReactive); Hep B Surf Ag Non-Reactive S/CO (NonReactive); Hep C IgG Ab Non-Reactive (NonReactive); Hep C Index 0.07 S/CO (0-0.79)
[2021-05-08 20:39] LABS: Legionella Urinary Ag Negative (Negative); Strep pneumo Urine Ag NEGATIVE (NEGATIVE)
[2021-05-08] MEDS ORDERED: Atorvastatin Calcium 40 MG TAB PO SCH (21:00)
[2021-05-08] MEDS: cefTRIAXone\\ROCEPHIN 1 GM in Sodium Chloride 0.9% 100 ML IVPB SCH (23:03)
[2021-05-08] MEDS: Azithromycin 500 MG in Sodium Chloride 0.9% 250 ML 250 ML IVPB SCH (23:03)
[2021-05-08] MEDS: Atorvastatin Calcium 40 MG TAB PO SCH (23:04)
[2021-05-09 00:57] LABS: Actual Bicarbonate (HCO3a) 19.4 mEq/L (22-28); Base Excess (BEa) -3.3 mEq/L (-2.0 to +3.0); Calcium, Ionized (arterial) 1.09 mmol/L (1.12-1.30); Carboxyhemoglobin (COHb) 0.3 gm% (0.0-3.0); Hemoglobin (Hb) 12.1 g/dL (14.0-18.0); Potassium - ABG Lab 4.41 mmol/L (3.70-5.30); pH, Arterial 7.46 (7.35-7.45)
[2021-05-09 01:03] LABS: O2 Tension (PaO2), arterial 49.5 mmHg (> 70.0); Puncture Site LRA
[2021-05-09 05:21] LABS: Hemoglobin 11.3 g/dL (14.0-18.0); Mean Corpuscular HGB CONC 32.9 g/dL (32.0-36.0); Mean Corpuscular Hemoglobin 29.1 pg (27.0-31.0); Mean Corpuscular Volume 88.3 fL (78.0-98.0); Mean Platelet Volume 7.8 fL (7.4-10.4); Platelet Count 258 thou/uL (130-400); RBC Distribution Width 13.7 % (11.5-14.5); White Blood Cell (WBC) Count 26.9 thou/uL (4.8-10.8)
[2021-05-09 05:45] LABS: ALT (SGPT) 16 U/L (8-55); AST (SGOT) 52 U/L (5-34); Albumin 4.1 g/dL (3.4-4.8); Alkaline Phosphatase 102 U/L (40-110); Anion Gap 22 mmol/L (10-20); BUN (Urea Nitrogen) 51 mg/dL (8.4-25.7); Calc. Creatinine Clearance 18 mL/min (70-130); Calcium 9.2 mg/dL (7.8-10.44); Carbon Dioxide 20 mmol/L (23-31); Chloride 102 mmol/L (98-107); Globulin 2.5 g/dL (2.4-3.5); Glucose 230 mg/dL (83-110); Potassium 4.9 mmol/L (3.5-5.1); Protein, Total 6.6 g/dL (5.8-8.1); Sodium 140 mmol/L (136-145)
[2021-05-09] MEDS: Furosemide 100 MG/10 ML VIAL SLOW IVP SCH (06:02)
[2021-05-09] MEDS: Nitroglycerin 2% Ointment 1 INCH/1 GM Packet TOP SCH ×2 (06:02→16:42)
[2021-05-09 06:40] LABS: Band 1 % (5-11); Lymphocytes 3 % (21-51); MDiff Complete? YES; Monocytes 10 % (0-10); Neutrophil 86 % (42-75); Platelet Morphology Comment Appears Adequate; RBC Morphology Normal
[2021-05-09] MEDS: Insulin Regular 300 UNITS/3 ML VIAL SC PRN (10:54)
[2021-05-09] MEDS ORDERED: Heparin 10,000 UNITS/ 10 ML VIAL ONE (14:46)
[2021-05-09] MEDS: Metoprolol Tartrate 50 MG TAB PO SCH ×2 (16:41→20:39)
[2021-05-09] MEDS: NIFEdipine XL 60 MG TAB PO SCH ×2 (16:41→20:39)
[2021-05-09] MEDS: Aspirin 325 mg Enteric Coated Tablet PO SCH (16:41)
[2021-05-09] MEDS: Enoxaparin Sodium 30 MG/0.3 ML SYRINGE SC SCH (16:41)
[2021-05-09] MEDS: Famotidine 20 MG TAB PO SCH (16:41)
[2021-05-09] MEDS: cefTRIAXone\\ROCEPHIN 1 GM in Sodium Chloride 0.9% 100 ML IVPB SCH (16:42)
[2021-05-09] MEDS: Azithromycin 500 MG in Sodium Chloride 0.9% 250 ML 250 ML IVPB SCH (20:34)
[2021-05-09] MEDS: Atorvastatin Calcium 40 MG TAB PO SCH (20:39)
[2021-05-10] MEDS: Enoxaparin Sodium 30 MG/0.3 ML SYRINGE SC SCH (10:22)
[2021-05-10] MEDS: Aspirin 325 mg Enteric Coated Tablet PO SCH (10:22)
[2021-05-10] MEDS: Famotidine 20 MG TAB PO SCH (10:22)
[2021-05-10] MEDS: Nitroglycerin 2% Ointment 1 INCH/1 GM Packet TOP SCH ×3 (10:22→21:03)
[2021-05-10] MEDS: NIFEdipine XL 60 MG TAB PO SCH ×2 (10:23→21:03)
[2021-05-10] MEDS: Metoprolol Tartrate 50 MG TAB PO SCH ×2 (10:23→21:02)
[2021-05-10 11:23] LABS: ALT (SGPT) 17 U/L (8-55); AST (SGOT) 42 U/L (5-34); Albumin 3.5 g/dL (3.4-4.8); Alkaline Phosphatase 90 U/L (40-110); Anion Gap 19 mmol/L (10-20); BUN (Urea Nitrogen) 56 mg/dL (8.4-25.7); Bilirubin, Total 0.7 mg/dL (0.2-1.2); Calc. Creatinine Clearance 16 mL/min (70-130); Calcium 8.9 mg/dL (7.8-10.44); Carbon Dioxide 25 mmol/L (23-31); Chloride 102 mmol/L (98-107); Globulin 2.4 g/dL (2.4-3.5); Protein, Total 5.9 g/dL (5.8-8.1); Sodium 141 mmol/L (136-145)
[2021-05-10 13:24] LABS: #Lymphocytes 0.8 thou/uL (1.20-3.40); #Neutrophils 16.2 thou/uL (1.40-6.50); %Basophils 0.1 % (0.0-1.0); %Eosinophils 0.1 % (0.0-10.0); %Lymphocytes 4.4 % (21.0-51.0); %Monocytes 10.3 % (0.0-10.0); %Neutrophils 85.1 % (42.0-75.0); Hemoglobin 10.4 g/dL (14.0-18.0); Mean Corpuscular HGB CONC 32.2 g/dL (32.0-36.0); Mean Corpuscular Hemoglobin 28.8 pg (27.0-31.0); Mean Corpuscular Volume 89.6 fL (78.0-98.0); Mean Platelet Volume 8.1 fL (7.4-10.4); Platelet Count 209 thou/uL (130-400); RBC Distribution Width 13.6 % (11.5-14.5)
[2021-05-10] MEDS ORDERED: Heparin 10,000 UNITS/ 10 ML VIAL ONE (14:49)
[2021-05-10] MEDS: cefTRIAXone\\ROCEPHIN 1 GM in Sodium Chloride 0.9% 100 ML IVPB SCH (18:17)
[2021-05-10] MEDS: Atorvastatin Calcium 40 MG TAB PO SCH (21:02)
[2021-05-10] MEDS: Azithromycin 500 MG in Sodium Chloride 0.9% 250 ML 250 ML IVPB SCH (21:30)
[2021-05-11 04:20] LABS: #Eosinphils 0.1 thou/uL (0.0-0.7); #Lymphocytes 0.8 thou/uL (1.20-3.40); #Monocytes 1.6 thou/uL (0.11-0.59); #Neutrophils 13.5 thou/uL (1.40-6.50); %Basophils 0.1 % (0.0-1.0); %Eosinophils 0.4 % (0.0-10.0); %Lymphocytes 5.1 % (21.0-51.0); %Monocytes 9.8 % (0.0-10.0); %Neutrophils 84.6 % (42.0-75.0); Hemoglobin 10.8 g/dL (14.0-18.0); Mean Corpuscular HGB CONC 34.1 g/dL (32.0-36.0); Mean Corpuscular Hemoglobin 30.4 pg (27.0-31.0); Mean Corpuscular Volume 88.9 fL (78.0-98.0); Mean Platelet Volume 8.3 fL (7.4-10.4); Platelet Count 214 thou/uL (130-400); RBC Distribution Width 13.4 % (11.5-14.5); Red Blood Cell (RBC) Count 3.55 mill/uL (4.70-6.10); White Blood Cell (WBC) Count 15.9 thou/uL (4.8-10.8)
[2021-05-11 04:42] LABS: ALT (SGPT) 19 U/L (8-55); AST (SGOT) 30 U/L (5-34); Albumin 3.4 g/dL (3.4-4.8); Alkaline Phosphatase 93 U/L (40-110); Anion Gap 16 mmol/L (10-20); BUN (Urea Nitrogen) 49 mg/dL (8.4-25.7); Bilirubin, Total 0.7 mg/dL (0.2-1.2); Calc. Creatinine Clearance 20 mL/min (70-130); Calcium 8.5 mg/dL (7.8-10.44); Carbon Dioxide 25 mmol/L (23-31); Chloride 100 mmol/L (98-107); Globulin 2.3 g/dL (2.4-3.5); Glucose 235 mg/dL (83-110); Potassium 4.3 mmol/L (3.5-5.1); Protein, Total 5.7 g/dL (5.8-8.1); Sodium 137 mmol/L (136-145)
[2021-05-11] MEDS ORDERED: Communication Order-Pharmacy FS SCH (08:17)
[2021-05-11] MEDS: Nitroglycerin 2% Ointment 1 INCH/1 GM Packet TOP SCH ×3 (10:32→21:51)
[2021-05-11] MEDS: Enoxaparin Sodium 30 MG/0.3 ML SYRINGE SC SCH (10:35)
[2021-05-11] MEDS: Famotidine 20 MG TAB PO SCH (10:36)
[2021-05-11] MEDS: Metoprolol Tartrate 50 MG TAB PO SCH ×2 (10:36→21:48)
[2021-05-11] MEDS: NIFEdipine XL 60 MG TAB PO SCH ×2 (10:37→21:50)
[2021-05-11] MEDS: Insulin Regular 300 UNITS/3 ML VIAL SC PRN ×2 (11:35→17:02)
[2021-05-11] MEDS ORDERED: Heparin 10,000 UNITS/ 10 ML VIAL ONE (14:50)
[2021-05-11] MEDS: cefTRIAXone\\ROCEPHIN 1 GM in Sodium Chloride 0.9% 100 ML IVPB SCH (17:02)
[2021-05-11] MEDS: Azithromycin 500 MG in Sodium Chloride 0.9% 250 ML 250 ML IVPB SCH (21:47)
[2021-05-11] MEDS: Atorvastatin Calcium 40 MG TAB PO SCH (21:48)
[2021-05-11] MEDS: Heparin 5,000 UNITS/ML VIAL SC SCH (22:02)
[2021-05-12 04:34] LABS: #Eosinphils 0.1 thou/uL (0.0-0.7); #Monocytes 1.5 thou/uL (0.11-0.59); #Neutrophils 8.5 thou/uL (1.40-6.50); %Basophils 0.1 % (0.0-1.0); %Eosinophils 1.2 % (0.0-10.0); %Lymphocytes 8.6 % (21.0-51.0); %Monocytes 13.2 % (0.0-10.0); %Neutrophils 76.9 % (42.0-75.0); Hemoglobin 10.5 g/dL (14.0-18.0); Mean Corpuscular HGB CONC 32.7 g/dL (32.0-36.0); Mean Corpuscular Volume 88.8 fL (78.0-98.0); Mean Platelet Volume 8.5 fL (7.4-10.4); Platelet Count 195 thou/uL (130-400); RBC Distribution Width 13.3 % (11.5-14.5); Red Blood Cell (RBC) Count 3.62 mill/uL (4.70-6.10)
[2021-05-12 04:59] LABS: ALT (SGPT) 24 U/L (8-55); AST (SGOT) 30 U/L (5-34); Albumin 3.2 g/dL (3.4-4.8); Alkaline Phosphatase 90 U/L (40-110); Anion Gap 16 mmol/L (10-20); BUN (Urea Nitrogen) 73 mg/dL (8.4-25.7); Bilirubin, Total 0.6 mg/dL (0.2-1.2); Calc. Creatinine Clearance 17 mL/min (70-130); Calcium 8.4 mg/dL (7.8-10.44); Carbon Dioxide 22 mmol/L (23-31); Chloride 98 mmol/L (98-107); Globulin 2.4 g/dL (2.4-3.5); Glucose 232 mg/dL (83-110); Potassium 4.4 mmol/L (3.5-5.1); Protein, Total 5.6 g/dL (5.8-8.1); Sodium 132 mmol/L (136-145)
[2021-05-12] MEDS: Metoprolol Tartrate 50 MG TAB PO SCH (05:28)
[2021-05-12] MEDS ORDERED: Albumin 5% 500 ML ONE (06:30)
[2021-05-12] MEDS ORDERED: Heparin 10,000 UNITS/1 ML VIAL 30,000 UNITS in Sodium Chloride 0.9% 1,000 ML FS SCH (06:45)
[2021-05-12] MEDS ORDERED: Fentanyl 250 MCG/5 ML VIAL ONE (06:53)
[2021-05-12] MEDS ORDERED: Midazolam HCl 5 mg/5 ml Vial ONE (06:53)
[2021-05-12] MEDS ORDERED: Dexmedetomidine 200 MCG/2 ML VIAL ONE (06:54)
[2021-05-12] MEDS ORDERED: Calcium Chloride 1 GM/10 ML Abboject SYRINGE ONE (07:49)
[2021-05-12] MEDS ORDERED: Cardioplegic Soln 1,000 ML BAG ONE (07:49)
[2021-05-12] MEDS ORDERED: Ondansetron PF 4 MG/2 ML Vial ONE (07:49)
[2021-05-12] MEDS ORDERED: Glycopyrrolate 0.2 MG/ML 5 ML SYRINGE ONE (07:49)
[2021-05-12] MEDS ORDERED: Mannitol 12.5 GM/50 ML ONE (07:49)
[2021-05-12] MEDS ORDERED: Potassium Chloride 60 MEQ/30 ML VIAL ONE (07:49)
[2021-05-12] MEDS ORDERED: Sodium Bicarb 50 MEQ/50 ML Abboject 8.4% SYRINGE ONE (07:49)
[2021-05-12] MEDS ORDERED: Lidocaine 1% PF 5 ML VIAL ONE (07:49)
[2021-05-12] MEDS ORDERED: Protamine Sulfate 250 MG/25 ML VIAL ONE (07:49)
[2021-05-12] MEDS ORDERED: Magnesium Sulfate 1 GM/2 ML VIAL ONE (07:49)
[2021-05-12] MEDS ORDERED: PROPOFOL 200 MG/20 ML VIAL ONE (07:49)
[2021-05-12] MEDS ORDERED: Vecuronium 10 MG VIAL ONE (07:49)
[2021-05-12] MEDS ORDERED: PHENYLEPHRINE-NS 100 MCG/ML 10 ML SYRINGE ONE ×2 (07:49→08:47)
[2021-05-12] MEDS ORDERED: Norepinephrine 4 MG/4 ML VIAL ONE (07:49)
[2021-05-12] MEDS ORDERED: Papaverine 60 MG/2 ML VIAL ONE (07:49)
[2021-05-12] MEDS ORDERED: Heparin 5,000 UNITS/ML VIAL ONE (07:49)
[2021-05-12] MEDS ORDERED: Aminocaproic Acid 5 GM/20 ML VIAL ONE (07:49)
[2021-05-12] MEDS ORDERED: Thrombin 5000 UNITS/5 ML VIAL ONE (07:49)
[2021-05-12] MEDS ORDERED: Dexamethasone 20 MG/5 ML VIAL ONE (07:49)
[2021-05-12 11:20] LABS: Glucose 216 mg/dL (83-110)
[2021-05-12 12:21] LABS: Actual Bicarbonate (HCO3a) 21.7 mEq/L (22-28); Base Excess (BEa) -4.4 mEq/L (-2.0 to +3.0); CO2 Tension 44.2 mmHg (35.0-45.0); Calcium, Ionized (arterial) 1.06 mmol/L (1.12-1.30); Carboxyhemoglobin (COHb) 0.6 gm% (0.0-3.0); Hemoglobin (Hb) 11.6 g/dL (14.0-18.0); O2 Tension (PaO2), arterial 63.6 mmHg (> 70.0); Potassium - ABG Lab 4.01 mmol/L (3.70-5.30); pH, Arterial 7.31 (7.35-7.45)
[2021-05-12 12:22] LABS: Puncture Site Arterial Line
[2021-05-12] MEDS ORDERED: Bisacodyl 5 MG TAB PO PRN (13:03)
[2021-05-12] MEDS ORDERED: Promethazine HCl 25 MG/ML VIAL IM PRN (13:03)
[2021-05-12] MEDS ORDERED: Ondansetron PF 4 MG/2 ML Vial IVP PRN (13:03)
[2021-05-12] MEDS ORDERED: Post-Op Insulin Drip Protocol IVPB ONE (13:03)
[2021-05-12] MEDS ORDERED: Guaifenesin DM 100-10/5 ML UDCUP PO PRN (13:03)
[2021-05-12] MEDS ORDERED: Fentanyl 100 MCG/2 ML VIAL SLOW IVP PRN ×2 (13:03)
[2021-05-12] MEDS ORDERED: Morphine 2 MG/ML VIAL SLOW IVP PRN (13:03)
[2021-05-12] MEDS ORDERED: Nitroglycerin 50 MG/250 ML BOT 250 ML IVPB PRN (13:03)
[2021-05-12] MEDS ORDERED: Norepinephrine 8 MG/0.9% NS 250 ML IVPB PRN (13:03)
[2021-05-12] MEDS ORDERED: Hetastarch 6% 500 ML 500 ML IVPB PRN (13:03)
[2021-05-12] MEDS ORDERED: Mag-Al 1200 mg/1200 mg/30 ML UDCUP PO PRN (13:03)
[2021-05-12] MEDS ORDERED: Sodium Chloride 0.9% 1,000 ML IV SCH (13:03)
[2021-05-12] MEDS ORDERED: Bisacodyl 10 MG SUPP PR PRN (13:03)
[2021-05-12] MEDS ORDERED: Acetaminophen 325 MG TAB PO PRN (13:03)
[2021-05-12] MEDS ORDERED: niCARdipine 25 MG in Sodium Chloride 0.9% 250 ML 250 ML IVPB PRN (13:03)
[2021-05-12] MEDS: Heparin 5,000 UNITS/ML VIAL SC SCH (13:29)
[2021-05-12] MEDS: NIFEdipine XL 60 MG TAB PO SCH (13:29)
[2021-05-12] MEDS ORDERED: HUMULIN R 100 UNITS in Sodium Chloride 0.9% 100 ML IVPB SCH (13:30)
[2021-05-12] MEDS: Famotidine 20 MG TAB PO SCH (13:30)
[2021-05-12] MEDS ORDERED: Insulin Regular 300 UNITS/3 ML VIAL SC PRN (13:30)
[2021-05-12] MEDS ORDERED: Dextrose 5% in Water 1,000 ML IV PRN (13:30)
[2021-05-12] MEDS ORDERED: Dextrose 50% Abboject 50 ML SYRINGE SLOW IVP PRN (13:30)
[2021-05-12] MEDS: Nitroglycerin 2% Ointment 1 INCH/1 GM Packet TOP SCH (13:30)
[2021-05-12 13:43] LABS: #Basophils 0.1 thou/uL (0.0-0.2); #Eosinphils 0.3 thou/uL (0.0-0.7); #Lymphocytes 0.9 thou/uL (1.20-3.40); #Monocytes 2.1 thou/uL (0.11-0.59); #Neutrophils 15.2 thou/uL (1.40-6.50); %Basophils 0.3 % (0.0-1.0); %Eosinophils 1.7 % (0.0-10.0); %Lymphocytes 4.6 % (21.0-51.0); %Monocytes 11.2 % (0.0-10.0); %Neutrophils 82.2 % (42.0-75.0); Hemoglobin 11.4 g/dL (14.0-18.0); Mean Corpuscular Hemoglobin 30.8 pg (27.0-31.0); Mean Corpuscular Volume 90.6 fL (78.0-98.0); Mean Platelet Volume 8.8 fL (7.4-10.4); Platelet Count 131 thou/uL (130-400); RBC Distribution Width 13.3 % (11.5-14.5); Red Blood Cell (RBC) Count 3.69 mill/uL (4.70-6.10); White Blood Cell (WBC) Count 18.5 thou/uL (4.8-10.8)
[2021-05-12 13:52] LABS: Anion Gap 13 mmol/L (10-20); BUN (Urea Nitrogen) 66 mg/dL (8.4-25.7); Calc. Creatinine Clearance 20 mL/min (70-130); Calcium 7.4 mg/dL (7.8-10.44); Carbon Dioxide 21 mmol/L (23-31); Chloride 105 mmol/L (98-107); Glucose 110 mg/dL (83-110); Potassium 4.1 mmol/L (3.5-5.1); Sodium 135 mmol/L (136-145)
[2021-05-12 13:56] LABS: INR-International Normal Ratio 1.3; PTT 30.1 sec (22.9-36.1); Prothrombin Time 16.7 sec (12.0-14.7)
[2021-05-12 17:24] LABS: Hemoglobin 13.3 g/dL (14.0-18.0)
[2021-05-12 17:40] LABS: Glucose 204 mg/dL (83-110); Potassium 5.4 mmol/L (3.5-5.1)
[2021-05-12 19:54] LABS: Anion Gap 20 mmol/L (10-20); BUN (Urea Nitrogen) 79 mg/dL (8.4-25.7); Calc. Creatinine Clearance 18 mL/min (70-130); Calcium 8.1 mg/dL (7.8-10.44); Carbon Dioxide 19 mmol/L (23-31); Chloride 103 mmol/L (98-107); Glucose 168 mg/dL (83-110); Potassium 5.1 mmol/L (3.5-5.1); Sodium 137 mmol/L (136-145)
[2021-05-12 20:00] LABS: Actual Bicarbonate (HCO3a) 18.9 mEq/L (22-28); Base Excess (BEa) -4.8 mEq/L (-2.0 to +3.0); CO2 Tension 31.3 mmHg (35.0-45.0); Calcium, Ionized (arterial) 1.07 mmol/L (1.12-1.30); Carboxyhemoglobin (COHb) 0.5 gm% (0.0-3.0); Hemoglobin (Hb) 13.3 g/dL (14.0-18.0); O2 Tension (PaO2), arterial 89.9 mmHg (> 70.0); Potassium - ABG Lab 4.54 mmol/L (3.70-5.30)
[2021-05-12 20:01] LABS: ALV-art Gradient 156.175 mmHg (0-20); Puncture Site Arterial Line
[2021-05-12] MEDS ORDERED: Famotidine/PF 20 mg/2ml Vial SLOW IVP SCH (21:00)
[2021-05-12] MEDS: CEFAZOLIN 2 GM in Premix Bag 1 BAG IVPB SCH (21:38)
[2021-05-13] MEDS: HYDROcodone/Acetaminophen 5/325 mg Tablet PO PRN ×3 (00:12→21:14)
[2021-05-13 03:51] LABS: Anion Gap 20 mmol/L (10-20); BUN (Urea Nitrogen) 83 mg/dL (8.4-25.7); Calc. Creatinine Clearance 18 mL/min (70-130); Calcium 8.3 mg/dL (7.8-10.44); Carbon Dioxide 19 mmol/L (23-31); Chloride 104 mmol/L (98-107); Glucose 120 mg/dL (83-110); Potassium 4.8 mmol/L (3.5-5.1); Sodium 138 mmol/L (136-145)
[2021-05-13 04:37] LABS: Band 1 % (5-11); Hemoglobin 12.8 g/dL (14.0-18.0); Lymphocytes 2 % (21-51); MDiff Complete? YES; Mean Corpuscular HGB CONC 33.8 g/dL (32.0-36.0); Mean Corpuscular Hemoglobin 30.6 pg (27.0-31.0); Mean Corpuscular Volume 90.5 fL (78.0-98.0); Mean Platelet Volume 8.5 fL (7.4-10.4); Monocytes 9 % (0-10); Neutrophil 88 % (42-75); Platelet Count 167 thou/uL (130-400); Platelet Morphology Comment Appears Adequate; RBC Distribution Width 13.3 % (11.5-14.5); RBC Morphology Normal; White Blood Cell (WBC) Count 20.5 thou/uL (4.8-10.8)
[2021-05-13] MEDS: CEFAZOLIN 2 GM in Premix Bag 1 BAG IVPB SCH (06:35)
[2021-05-13] MEDS ORDERED: Heparin 10,000 UNITS/ 10 ML VIAL ONE ×2 (08:58→10:30)
[2021-05-13] MEDS ORDERED: Aspirin 325 MG TAB PO SCH (09:00)
[2021-05-13] MEDS ORDERED: Nitroglycerin 0.4 MG TAB (25 Tab Bottle) SL PRN (10:34)
[2021-05-13] MEDS ORDERED: Mineral Oil ENEMA PR PRN (10:34)
[2021-05-13] MEDS ORDERED: Dextrose 5% in Water 1,000 ML IV PRN (11:30)
[2021-05-13] MEDS ORDERED: Dextrose 50% Abboject 50 ML SYRINGE SLOW IVP PRN (11:30)
[2021-05-13 15:13] LABS: Actual Bicarbonate (HCO3a) 21.9 mEq/L (22-28); Base Excess (BEa) -1.6 mEq/L (-2.0 to +3.0); CO2 Tension 32.6 mmHg (35.0-45.0); O2 Tension (PaO2), arterial 218.6 mmHg (> 70.0); pH, Arterial 7.45 (7.35-7.45)
[2021-05-13 15:14] LABS: Actual Bicarbonate (HCO3a) 21.5 mEq/L (22-28); Analyzer IN Cardio OR; Base Excess (BEa) -2.9 mEq/L (-2.0 to +3.0); CO2 Tension 35.9 mmHg (35.0-45.0); Calcium, Ionized (arterial) 1.02 mmol/L (1.12-1.30); Carboxyhemoglobin (COHb) 0.3 gm% (0.0-3.0); Hemoglobin (Hb) 9.9 g/dL (14.0-18.0); Potassium - ABG Lab 4.19 mmol/L (3.70-5.30)
[2021-05-13 15:14] LABS: Analyzer IN Cardio OR; Calcium, Ionized (arterial) 1.06 mmol/L (1.12-1.30); Carboxyhemoglobin (COHb) 0.3 gm% (0.0-3.0); Hemoglobin (Hb) 10.1 g/dL (14.0-18.0); Potassium - ABG Lab 4.53 mmol/L (3.70-5.30)
[2021-05-13 15:14] LABS: Actual Bicarbonate (HCO3v) 25 mEq/L (22-28); Analyzer IN Cardio OR; Base Excess 0.1 mEq/L (-2.0 to +3.0); Calcium, Ionized (venous) 0.97 mmol/L (1.16-1.32); Chloride (VBG) 101 mmol/L (98-106); Hemoglobin (Hb) 7.9 g/dL (12.6-17.4); Potassium (VBG) 4.64 mmol/L (3.70-5.30); Sodium 127.8 mmol/L (133-146)
[2021-05-13 15:14] LABS: Actual Bicarbonate (HCO3a) 25.2 mEq/L (22-28); Analyzer IN Cardio OR; Base Excess (BEa) 1.1 mEq/L (-2.0 to +3.0); CO2 Tension 37.6 mmHg (35.0-45.0); Calcium, Ionized (arterial) 0.97 mmol/L (1.12-1.30); Carboxyhemoglobin (COHb) 0.2 gm% (0.0-3.0); Hemoglobin (Hb) 8.2 g/dL (14.0-18.0); O2 Tension (PaO2), arterial 491.3 mmHg (> 70.0); Potassium - ABG Lab 4.94 mmol/L (3.70-5.30); pH, Arterial 7.44 (7.35-7.45)
[2021-05-13 15:15] LABS: Actual Bicarbonate (HCO3a) 23.5 mEq/L (22-28); Analyzer IN Cardio OR; Base Excess (BEa) -0.7 mEq/L (-2.0 to +3.0); CO2 Tension 36.4 mmHg (35.0-45.0); Calcium, Ionized (arterial) 0.98 mmol/L (1.12-1.30); Carboxyhemoglobin (COHb) 0.4 gm% (0.0-3.0); Hemoglobin (Hb) 8.6 g/dL (14.0-18.0); O2 Tension (PaO2), arterial 329.2 mmHg (> 70.0); Potassium - ABG Lab 4.55 mmol/L (3.70-5.30); pH, Arterial 7.43 (7.35-7.45)
[2021-05-13 15:16] LABS: Puncture Site Arterial Line
[2021-05-13 15:16] LABS: Actual Bicarbonate (HCO3v) 22 mEq/L (22-28); Analyzer IN Cardio OR; Base Excess -4.2 mEq/L (-2.0 to +3.0); Calcium, Ionized (venous) 1.03 mmol/L (1.16-1.32); Chloride (VBG) 106 mmol/L (98-106); Hemoglobin (Hb) 11.3 g/dL (12.6-17.4); Potassium (VBG) 3.91 mmol/L (3.70-5.30); Sodium 131.8 mmol/L (133-146); pH (venous) 7.29 (7.32-7.43)
[2021-05-13 15:16] LABS: Puncture Site Arterial Line
[2021-05-13 15:17] LABS: Puncture Site Arterial Line
[2021-05-13 15:17] LABS: Puncture Site Arterial Line
[2021-05-13] MEDS: Insulin Regular 300 UNITS/3 ML VIAL SC PRN ×2 (17:05→21:18)
[2021-05-13] MEDS: glipiZIDE 10 MG TAB PO SCH (17:09)
[2021-05-13] MEDS: Heparin 5,000 UNITS/ML VIAL SC SCH (20:21)
[2021-05-13] MEDS ORDERED: Atorvastatin Calcium 20 MG TAB PO SCH (21:00)
[2021-05-13] MEDS ORDERED: Metoprolol Tartrate 25 MG TAB PO SCH (21:00)
[2021-05-14 04:15] LABS: #Eosinphils 0.1 thou/uL (0.0-0.7); #Lymphocytes 1.2 thou/uL (1.20-3.40); #Monocytes 2.8 thou/uL (0.11-0.59); %Basophils 0.1 % (0.0-1.0); %Eosinophils 0.4 % (0.0-10.0); %Lymphocytes 6.1 % (21.0-51.0); %Monocytes 14.7 % (0.0-10.0); %Neutrophils 78.7 % (42.0-75.0); Hemoglobin 11.7 g/dL (14.0-18.0); Mean Corpuscular HGB CONC 31.2 g/dL (32.0-36.0); Mean Corpuscular Hemoglobin 28.4 pg (27.0-31.0); Mean Platelet Volume 8.5 fL (7.4-10.4); Platelet Count 180 thou/uL (130-400); RBC Distribution Width 13.6 % (11.5-14.5); Red Blood Cell (RBC) Count 4.11 mill/uL (4.70-6.10); White Blood Cell (WBC) Count 19.1 thou/uL (4.8-10.8)
[2021-05-14 04:32] LABS: Phosphorus 5.7 mg/dL (2.3-4.7)
[2021-05-14 04:36] LABS: ALT (SGPT) 14 U/L (8-55); AST (SGOT) 27 U/L (5-34); Albumin 3.2 g/dL (3.4-4.8); Alkaline Phosphatase 77 U/L (40-110); Anion Gap 16 mmol/L (10-20); BUN (Urea Nitrogen) 62 mg/dL (8.4-25.7); Bilirubin, Total 0.7 mg/dL (0.2-1.2); Calc. Creatinine Clearance 18 mL/min (70-130); Calcium 8.4 mg/dL (7.8-10.44); Carbon Dioxide 23 mmol/L (23-31); Chloride 101 mmol/L (98-107); Glucose 165 mg/dL (83-110); Magnesium 2.8 mg/dL (1.6-2.6); Potassium 4.1 mmol/L (3.5-5.1); Protein, Total 5.2 g/dL (5.8-8.1); Sodium 136 mmol/L (136-145)
[2021-05-14] MEDS: Insulin Regular 300 UNITS/3 ML VIAL SC PRN ×3 (06:09→17:43)
[2021-05-14] MEDS: Polyethylene Glycol 3350 17 GM Packet PO SCH (08:07)
[2021-05-14] MEDS: Metoprolol Tartrate 25 MG TAB PO SCH ×2 (08:07→21:25)
[2021-05-14] MEDS: glipiZIDE 10 MG TAB PO SCH ×2 (08:08→16:38)
[2021-05-14] MEDS: Alogliptin 6.25 MG TAB PO SCH (08:11)
[2021-05-14] MEDS: Heparin 5,000 UNITS/ML VIAL SC SCH ×2 (08:12→21:25)
[2021-05-14] MEDS: Aspirin 81 mg Enteric Coated Tablet PO SCH (08:42)
[2021-05-14] MEDS: HYDROcodone/Acetaminophen 5/325 mg Tablet PO PRN (11:27)
[2021-05-14] MEDS: Sevelamer Carbonate 800 MG TAB PO SCH (16:38)
[2021-05-14] MEDS: Bisacodyl 5 MG TAB PO PRN (16:38)
[2021-05-14] MEDS: Atorvastatin Calcium 40 MG TAB PO SCH (21:25)
[2021-05-15] MEDS: Insulin Regular 300 UNITS/3 ML VIAL SC PRN ×3 (00:49→18:32)
[2021-05-15 05:13] LABS: Anion Gap 16 mmol/L (10-20); BUN (Urea Nitrogen) 75 mg/dL (8.4-25.7); Calc. Creatinine Clearance 18 mL/min (70-130); Calcium 8.2 mg/dL (7.8-10.44); Carbon Dioxide 22 mmol/L (23-31); Chloride 99 mmol/L (98-107); Glucose 165 mg/dL (83-110); Potassium 4.1 mmol/L (3.5-5.1); Sodium 133 mmol/L (136-145)
[2021-05-15] MEDS: Metoprolol Tartrate 25 MG TAB PO SCH ×2 (08:57→20:32)
[2021-05-15] MEDS: glipiZIDE 10 MG TAB PO SCH ×2 (08:57→16:43)
[2021-05-15] MEDS: Aspirin 81 mg Enteric Coated Tablet PO SCH (08:57)
[2021-05-15] MEDS: Sevelamer Carbonate 800 MG TAB PO SCH ×3 (08:57→16:43)
[2021-05-15] MEDS: Heparin 5,000 UNITS/ML VIAL SC SCH ×2 (14:33→20:32)
[2021-05-15] MEDS: Polyethylene Glycol 3350 17 GM Packet PO SCH (14:34)
[2021-05-15] MEDS: Alogliptin 6.25 MG TAB PO SCH (14:34)
[2021-05-15] MEDS ORDERED: Tuberculin PPD 0.1 ML VIAL I-DERMAL SCH ×2 (18:45→21:30)
[2021-05-15] MEDS: Atorvastatin Calcium 40 MG TAB PO SCH (20:32)
[2021-05-16 01:52] LABS: SARS-CoV-2 NAA Rapid Test Not Detected (NotDetected)
[2021-05-16 05:20] LABS: Anion Gap 13 mmol/L (10-20); BUN (Urea Nitrogen) 44 mg/dL (8.4-25.7); Calc. Creatinine Clearance 24 mL/min (70-130); Calcium 7.8 mg/dL (7.8-10.44); Carbon Dioxide 26 mmol/L (23-31); Chloride 100 mmol/L (98-107); Glucose 213 mg/dL (83-110); Sodium 135 mmol/L (136-145)
[2021-05-16] MEDS: Heparin 5,000 UNITS/ML VIAL SC SCH ×2 (08:44→23:30)
[2021-05-16] MEDS: glipiZIDE 10 MG TAB PO SCH ×2 (08:44→16:07)
[2021-05-16] MEDS: Aspirin 81 mg Enteric Coated Tablet PO SCH (08:44)
[2021-05-16] MEDS: Sevelamer Carbonate 800 MG TAB PO SCH ×3 (08:44→16:07)
[2021-05-16] MEDS: Metoprolol Tartrate 25 MG TAB PO SCH ×2 (08:45→23:30)
[2021-05-16] MEDS: Alogliptin 6.25 MG TAB PO SCH (12:11)
[2021-05-16] MEDS: Polyethylene Glycol 3350 17 GM Packet PO SCH (12:12)
[2021-05-16] MEDS ORDERED: Heparin 10,000 UNITS/ 10 ML VIAL ONE (12:13)
[2021-05-16] MEDS ORDERED: Lidocaine 1% w/Epinephrine 1:100K 20 ML VIAL ONE (12:13)
[2021-05-16] MEDS ORDERED: Sodium Chloride 0.9% 20 ML ONE (12:13)
[2021-05-16] MEDS ORDERED: Bupivacaine PF 0.5% 30 ML VIAL ONE (12:13)
[2021-05-16] MEDS ORDERED: Fentanyl 100 MCG/2 ML VIAL ONE (12:20)
[2021-05-16] MEDS ORDERED: Midazolam HCl 2 mg/2 ml Vial ONE (12:20)
[2021-05-16] MEDS ORDERED: Ketamine 50 MG/ML (10ML VIAL) ONE (12:20)
[2021-05-16] MEDS ORDERED: Propofol 500 MG/50 ML VIAL ONE (12:26)
[2021-05-16] MEDS ORDERED: Promethazine HCl 25 MG/ML VIAL IVPB PRN (13:18)
[2021-05-16] MEDS ORDERED: Ondansetron HCl/PF 4 MG/2 ML Vial IVP PRN (13:18)
[2021-05-16] MEDS ORDERED: Promethazine HCl 25 MG/ML VIAL IM PRN (13:18)
[2021-05-16] MEDS: Atorvastatin Calcium 40 MG TAB PO SCH (23:30)
[2021-05-16] MEDS: Insulin Regular 300 UNITS/3 ML VIAL SC PRN (23:33)
[2021-05-17] MEDS: Insulin Regular 300 UNITS/3 ML VIAL SC PRN ×3 (06:19→20:52)
[2021-05-17] MEDS ORDERED: READ PPD TEST SITE PO SCH ×2 (09:00)
[2021-05-17] MEDS ORDERED: Heparin 10,000 UNITS/ 10 ML VIAL ONE (09:39)
[2021-05-17] MEDS: Sevelamer Carbonate 800 MG TAB PO SCH ×3 (10:20→17:18)
[2021-05-17] MEDS ORDERED: Piperacillin/Tazobactam 3.375 GM in Sodium Chloride 0.9% 100 ML IVPB SCH ×4 (11:00→16:00)
[2021-05-17] MEDS ORDERED: Vancomycin HCl 500 MG in Sodium Chloride 0.9% 100 ML IVPB SCH (11:45)
[2021-05-17] MEDS ORDERED: Vancomycin 1 GM in Premix Bag 1 BAG IVPB SCH ×2 (11:45→21:00)
[2021-05-17] MEDS ORDERED: Vancomycin Sliding Scale 1 EACH FS ONE (11:45)
[2021-05-17] MEDS ORDERED: Vancomycin HCl 1.25 GM in Sodium Chloride 0.9% 250 ML 250 ML IVPB SCH (11:45)
[2021-05-17] MEDS ORDERED: Vancomycin HCl 750 MG in Sodium Chloride 0.9% 250 ML 250 ML IVPB SCH (11:45)
[2021-05-17] MEDS ORDERED: HOLD VANCOMYCIN FOR LEVEL >20 FS SCH (11:45)
[2021-05-17] MEDS: glipiZIDE 10 MG TAB PO SCH ×2 (12:25→17:17)
[2021-05-17] MEDS: Metoprolol Tartrate 25 MG TAB PO SCH ×2 (12:58→20:40)
[2021-05-17] MEDS: Aspirin 81 mg Enteric Coated Tablet PO SCH (12:58)
[2021-05-17] MEDS: Polyethylene Glycol 3350 17 GM Packet PO SCH (12:59)
[2021-05-17] MEDS ORDERED: VANCOMYCIN 1.75 GM/350 ML BAG 1.75 GM in Premix Bag 1 BAG IVPB SCH (13:00)
[2021-05-17] MEDS: Heparin 5,000 UNITS/ML VIAL SC SCH ×2 (13:03→20:41)
[2021-05-17] MEDS: Alogliptin 6.25 MG TAB PO SCH (13:28)
[2021-05-17] MEDS: Piperacillin/Tazobactam 3.375 GM in Sodium Chloride 0.9% 100 ML IVPB SCH (17:20)
[2021-05-17] MEDS: Atorvastatin Calcium 40 MG TAB PO SCH (20:40)
[2021-05-18] MEDS: Piperacillin/Tazobactam 3.375 GM in Sodium Chloride 0.9% 100 ML IVPB SCH ×2 (06:50→16:59)
[2021-05-18] MEDS: Aspirin 81 mg Enteric Coated Tablet PO SCH ×2 (08:45→08:50)
[2021-05-18] MEDS: Metoprolol Tartrate 25 MG TAB PO SCH (08:48)
[2021-05-18] MEDS: Bisacodyl 5 MG TAB PO PRN (08:51)
[2021-05-18] MEDS: Sevelamer Carbonate 800 MG TAB PO SCH ×3 (08:51→16:54)
[2021-05-18] MEDS: Polyethylene Glycol 3350 17 GM Packet PO SCH (08:51)
[2021-05-18] MEDS: glipiZIDE 10 MG TAB PO SCH ×2 (08:51→16:54)
[2021-05-18] MEDS: Heparin 5,000 UNITS/ML VIAL SC SCH ×2 (08:54→23:34)
[2021-05-18] MEDS: Insulin Regular 300 UNITS/3 ML VIAL SC PRN ×2 (11:51→23:34)
[2021-05-18] MEDS: Alogliptin 6.25 MG TAB PO SCH (11:55)
[2021-05-18 13:08] LABS: Chloride 98 mmol/L (98-107); Potassium 3.9 mmol/L (3.5-5.1); Sodium 134 mmol/L (136-145)
[2021-05-18 13:09] LABS: Calcium 8.3 mg/dL (7.8-10.44)
[2021-05-18 13:11] LABS: Anion Gap 15 mmol/L (10-20); Carbon Dioxide 25 mmol/L (23-31)
[2021-05-18 13:12] LABS: #Basophils 0.2 thou/uL (0.0-0.2); #Eosinphils 0.3 thou/uL (0.0-0.7); #Monocytes 1.5 thou/uL (0.11-0.59); #Neutrophils 12.7 thou/uL (1.40-6.50); %Basophils 1.1 % (0.0-1.0); %Eosinophils 1.7 % (0.0-10.0); %Lymphocytes 6.4 % (21.0-51.0); %Monocytes 9.7 % (0.0-10.0); %Neutrophils 81.1 % (42.0-75.0); Hemoglobin 9.9 g/dL (14.0-18.0); Mean Corpuscular HGB CONC 32.2 g/dL (32.0-36.0); Mean Corpuscular Hemoglobin 29.7 pg (27.0-31.0); Mean Corpuscular Volume 92.1 fL (78.0-98.0); Mean Platelet Volume 7.3 fL (7.4-10.4); Platelet Count 315 thou/uL (130-400); RBC Distribution Width 13.2 % (11.5-14.5); Red Blood Cell (RBC) Count 3.35 mill/uL (4.70-6.10); White Blood Cell (WBC) Count 15.6 thou/uL (4.8-10.8)
[2021-05-18 13:13] LABS: Calc. Creatinine Clearance 26 mL/min (70-130)
[2021-05-18 13:14] LABS: BUN (Urea Nitrogen) 30 mg/dL (8.4-25.7)
[2021-05-18 13:18] LABS: Glucose 155 mg/dL (83-110)
[2021-05-18] MEDS ORDERED: Polyethylene Glycol 3350 17 GM Packet PO SCH (16:15)
[2021-05-18] MEDS: Atenolol 50 MG TAB PO SCH (16:54)
[2021-05-18] MEDS: Atorvastatin Calcium 40 MG TAB PO SCH (23:36)
[2021-05-18] MEDS: hydrALAZINE 20 MG/ML VIAL SLOW IVP PRN (23:46)
[2021-05-19 04:43] LABS: #Eosinphils 0.3 thou/uL (0.0-0.7); #Lymphocytes 1.3 thou/uL (1.20-3.40); #Monocytes 1.5 thou/uL (0.11-0.59); #Neutrophils 12.9 thou/uL (1.40-6.50); %Basophils 0.2 % (0.0-1.0); %Eosinophils 1.7 % (0.0-10.0); %Lymphocytes 8.3 % (21.0-51.0); %Monocytes 9.5 % (0.0-10.0); %Neutrophils 80.3 % (42.0-75.0); Hemoglobin 9.4 g/dL (14.0-18.0); Mean Corpuscular HGB CONC 32.2 g/dL (32.0-36.0); Mean Corpuscular Hemoglobin 29.2 pg (27.0-31.0); Mean Corpuscular Volume 90.8 fL (78.0-98.0); Mean Platelet Volume 7.2 fL (7.4-10.4); Platelet Count 359 thou/uL (130-400); RBC Distribution Width 13.1 % (11.5-14.5); Red Blood Cell (RBC) Count 3.22 mill/uL (4.70-6.10)
[2021-05-19 04:51] LABS: Anion Gap 14 mmol/L (10-20); BUN (Urea Nitrogen) 33 mg/dL (8.4-25.7); Calc. Creatinine Clearance 24 mL/min (70-130); Calcium 8.3 mg/dL (7.8-10.44); Carbon Dioxide 25 mmol/L (23-31); Chloride 99 mmol/L (98-107); Glucose 124 mg/dL (83-110); Potassium 3.5 mmol/L (3.5-5.1); Sodium 134 mmol/L (136-145)
[2021-05-19] MEDS: Piperacillin/Tazobactam 3.375 GM in Sodium Chloride 0.9% 100 ML IVPB SCH ×2 (05:56→17:37)
[2021-05-19] MEDS: Polyethylene Glycol 3350 17 GM Packet PO SCH (08:44)
[2021-05-19] MEDS: HYDROcodone/Acetaminophen 5/325 mg Tablet PO PRN ×2 (08:45→17:38)
[2021-05-19] MEDS: glipiZIDE 10 MG TAB PO SCH ×2 (08:48→17:39)
[2021-05-19] MEDS: Atenolol 50 MG TAB PO SCH (08:48)
[2021-05-19] MEDS: Sevelamer Carbonate 800 MG TAB PO SCH ×3 (08:48→17:38)
[2021-05-19] MEDS: Heparin 5,000 UNITS/ML VIAL SC SCH ×2 (08:55→20:38)
[2021-05-19] MEDS: Aspirin 81 mg Enteric Coated Tablet PO SCH (09:06)
[2021-05-19] MEDS: Alogliptin 6.25 MG TAB PO SCH (09:08)
[2021-05-19] MEDS: Insulin Regular 300 UNITS/3 ML VIAL SC PRN ×2 (12:34→17:39)
[2021-05-19] MEDS ORDERED: Heparin 10,000 UNITS/ 10 ML VIAL ONE (14:58)
[2021-05-19] MEDS: Atorvastatin Calcium 40 MG TAB PO SCH (20:38)
[2021-05-19] MEDS: hydrALAZINE 20 MG/ML VIAL SLOW IVP PRN (20:41)
[2021-05-20 05:17] LABS: #Basophils 0.1 thou/uL (0.0-0.2); #Eosinphils 0.3 thou/uL (0.0-0.7); #Lymphocytes 1.4 thou/uL (1.20-3.40); #Monocytes 1.5 thou/uL (0.11-0.59); #Neutrophils 11.3 thou/uL (1.40-6.50); %Basophils 0.6 % (0.0-1.0); %Eosinophils 1.7 % (0.0-10.0); %Lymphocytes 9.6 % (21.0-51.0); %Monocytes 10.4 % (0.0-10.0); %Neutrophils 77.6 % (42.0-75.0); Hemoglobin 9.2 g/dL (14.0-18.0); Mean Corpuscular Hemoglobin 28.3 pg (27.0-31.0); Mean Corpuscular Volume 91.5 fL (78.0-98.0); Mean Platelet Volume 6.7 fL (7.4-10.4); Platelet Count 400 thou/uL (130-400); RBC Distribution Width 13.2 % (11.5-14.5); Red Blood Cell (RBC) Count 3.24 mill/uL (4.70-6.10); White Blood Cell (WBC) Count 14.6 thou/uL (4.8-10.8)
[2021-05-20] MEDS: hydrALAZINE 20 MG/ML VIAL SLOW IVP PRN (05:17)
[2021-05-20] MEDS: Piperacillin/Tazobactam 3.375 GM in Sodium Chloride 0.9% 100 ML IVPB SCH (05:18)
[2021-05-20 05:46] LABS: Anion Gap 13 mmol/L (10-20); BUN (Urea Nitrogen) 20 mg/dL (8.4-25.7); Calc. Creatinine Clearance 28 mL/min (70-130); Calcium 8.3 mg/dL (7.8-10.44); Carbon Dioxide 27 mmol/L (23-31); Chloride 100 mmol/L (98-107); Glucose 157 mg/dL (83-110); Potassium 3.8 mmol/L (3.5-5.1); Sodium 136 mmol/L (136-145)
[2021-05-20 07:10] VITALS: TEMP 98.9
[2021-05-20 08:49] LABS: Vancomycin, Random 8.5 ug/mL (See Comment)
[2021-05-20] MEDS: Sevelamer Carbonate 800 MG TAB PO SCH ×2 (08:52→11:33)
[2021-05-20] MEDS: Aspirin 81 mg Enteric Coated Tablet PO SCH (08:52)
[2021-05-20] MEDS: glipiZIDE 10 MG TAB PO SCH (08:53)
[2021-05-20] MEDS: Polyethylene Glycol 3350 17 GM Packet PO SCH (08:53)
[2021-05-20] MEDS: Heparin 5,000 UNITS/ML VIAL SC SCH (08:53)
[2021-05-20] MEDS: Atenolol 50 MG TAB PO SCH (08:53)
[2021-05-20] MEDS: Alogliptin 6.25 MG TAB PO SCH (10:00)
[2021-05-20 11:31] VITALS: BP 128/63
[2021-05-20] MEDS: Insulin Regular 300 UNITS/3 ML VIAL SC PRN (11:34)
[2021-05-20 12:36] VITALS: BMI 27.2
[2021-05-20] MEDS ORDERED: Piperacillin/Tazobactam 3.375 GM in Sodium Chloride 0.9% 100 ML IVPB SCH (14:00)
[2021-05-20] MEDS: HYDROcodone/Acetaminophen 5/325 mg Tablet PO PRN (15:00)
== END 2021-05-20 16:24 | disposition home or self-care (01) | DRG 235 ==
LOC: 2NO 14:47 → IMCU/EMU 05-08 06:24 → CCU 05-12 07:38 → 2NO 05-14 09:53
PROVIDERS: ADMIT Internal Medicine; ATTEND Internal Medicine
PROC: 06HY33Z Insertion of Infusion Device into Lower Vein, Percutaneous Approach (ICD-10-PCS; 2021-05-08)
PROC: 3E033XZ Introduction of Vasopressor into Peripheral Vein, Percutaneous Approach (ICD-10-PCS; principal; 2021-05-12)
PROC: 30233N1 Transfusion of Nonautologous Red Blood Cells into Peripheral Vein, Percutaneous Approach (ICD-10-PCS; 2021-05-12)
PROC: 02100Z9 Bypass Coronary Artery, One Artery from Left Internal Mammary, Open Approach (ICD-10-PCS; 2021-05-12)
PROC: 021209W Bypass Coronary Artery, Three Arteries from Aorta with Autologous Venous Tissue, Open Approach (ICD-10-PCS; 2021-05-12)
PROC: 06BQ4ZZ Excision of Left Saphenous Vein, Percutaneous Endoscopic Approach (ICD-10-PCS; 2021-05-12)
PROC: 5A1221Z Performance of Cardiac Output, Continuous (ICD-10-PCS; 2021-05-12)
PROC: 0JH63XZ Insertion of Tunneled Vascular Access Device into Chest Subcutaneous Tissue and Fascia, Percutaneous Approach (ICD-10-PCS; 2021-05-16)
PROC: 02HV33Z Insertion of Infusion Device into Superior Vena Cava, Percutaneous Approach (ICD-10-PCS; 2021-05-16)
PROC: B5181ZA Fluoroscopy of Superior Vena Cava using Low Osmolar Contrast, Guidance (ICD-10-PCS; 2021-05-16)
PROC: B548ZZA Ultrasonography of Superior Vena Cava, Guidance (ICD-10-PCS; 2021-05-16)
DX: I21.4 Non-ST elevation (NSTEMI) myocardial infarction (principal); I50.33 Acute on chronic diastolic (congestive) heart failure; J96.01 Acute respiratory failure with hypoxia; Z20.822 Contact with and (suspected) exposure to COVID-19; N18.6 End stage renal disease; A41.9 Sepsis, unspecified organism; I13.2 Hypertensive heart and chronic kidney disease with heart failure and with stage 5 chronic kidney disease, or end stage renal disease; N17.9 Acute kidney failure, unspecified; E11.22 Type 2 diabetes mellitus with diabetic chronic kidney disease; E78.5 Hyperlipidemia, unspecified; I25.10 Atherosclerotic heart disease of native coronary artery without angina pectoris; E78.00 Pure hypercholesterolemia, unspecified; D63.1 Anemia in chronic kidney disease; D72.829 Elevated white blood cell count, unspecified; F32.9 Major depressive disorder, single episode, unspecified; Z79.84 Long term (current) use of oral hypoglycemic drugs; Z79.82 Long term (current) use of aspirin; Z79.899 Other long term (current) drug therapy; Z82.49 Family history of ischemic heart disease and other diseases of the circulatory system
CPT/HCPCS: 36140; 36215; 36415; 36416; 36430; 36600; 71045; 75710; 80048; 80053; 80061; 80202; 82553; 82805; 83036; 83605; 83735; 83880; 84100; 84145; 84443; 84484; 85025; 85610; 85730; 86580; 86704; 86706; 86803; 86850; 86900; 86901; 87040; 87086; 87340; 87449; 87899; 90935; 93005; 93010; 93306; 93459; 93798; 93970; 94002; 94640; 94660; 94760; 96365; 96366; 96367; 97139; 99152; 99153; C1752; G0257; J0132; J0153; J0360; J0456; J0690; J0696; J1100; J1642; J1644; J1650; J1815; J1940; J2150; J2250; J2270; J2405; J2440; J2543; J2704; J2720; J3010; J3370; J3475; J3480; J3490; J7050; J7620; P9016; P9045; P9047; S0017; S0020; S0028; U0002

== ENCOUNTER 2021-06-05 12:34 | Outpatient (CLI) | payer MEDICARE ==
[2021-06-05 13:36] LABS: #Basophils 0.1 10x3/uL (0.0-0.2); #Eosinphils 0.1 10x3/uL (0.0-0.5); #Monocytes 0.8 10x3/uL (0.0-1.1); #Neutrophils 3.8 10x3/uL (1.5-8.4); %Basophils 0.8 % (0.0-2.0); %Eosinophils 1.3 % (0.0-6.0); %Monocytes 13.9 % (0.0-10.0); %Neutrophils 63.5 % (40.0-75.0); Hemoglobin 9.5 g/dL (13.5-17.5); Mean Corpuscular HGB CONC 33.1 g/dL (32.0-36.0); Mean Corpuscular Hemoglobin 29.9 pg (27.0-33.0); Mean Corpuscular Volume 90.3 fl (81.2-95.1); Mean Platelet Volume 8.6 fl (7.4-10.4); Platelet Count 314 10x3/uL (150-450); RBC Distribution Width 13.9 % (11.5-14.5); Red Blood Cell (RBC) Count 3.18 10x6/uL (4.32-5.72)
[2021-06-05 13:46] LABS: Anion Gap 15 mmol/L (10-20); BUN (Urea Nitrogen) 17 mg/dL (8.4-25.7); Calc. Creatinine Clearance 0 mL/min (70-130); Calcium 9.8 mg/dL (7.8-10.44); Carbon Dioxide 32 mmol/L (23-31); Chloride 98 mmol/L (98-107); Glucose 219 mg/dL (83-110); Potassium 3.7 mmol/L (3.5-5.1); Sodium 141 mmol/L (136-145)
[2021-06-06 01:06] LABS: SARS-CoV-2 PCR by NAA Not Detected (NotDetected)
== END 2021-06-05 12:35 | disposition home or self-care (01) ==
LOC: LABBT 12:34
PROVIDERS: ATTEND Specialist
DX: Z01.812 Encounter for preprocedural laboratory examination (principal); N25.81 Secondary hyperparathyroidism of renal origin; Z20.822 Contact with and (suspected) exposure to COVID-19
CPT/HCPCS: 80048; 85025; U0003; U0005

== ENCOUNTER 2021-06-10 11:14 | Day surgery (SDC) | payer MEDICARE ==
[2021-06-09 14:16] VITALS: BMI 31.8
[2021-06-10] MEDS ORDERED: ceFAZolin 2 GM/DEX 5% 100 ML BAG ONE (12:05)
[2021-06-10] MEDS ORDERED: Fentanyl 100 MCG/2 ML VIAL ONE ×2 (12:53→13:22)
[2021-06-10] MEDS ORDERED: Lidocaine 1% w/Epinephrine 1:100K 20 ML VIAL ONE (13:12)
[2021-06-10] MEDS ORDERED: Bupivacaine 0.25% HCL 30 ML VIAL ONE (13:12)
[2021-06-10] MEDS ORDERED: Heparin 5,000 UNITS/ML VIAL ONE (13:12)
[2021-06-10] MEDS ORDERED: Protamine Sulfate 50 MG/5 ML VIAL ONE (13:12)
[2021-06-10] MEDS ORDERED: Propofol 1,000 MG/100 ML VIAL IV ONE (13:22)
[2021-06-10] MEDS ORDERED: Lidocaine 2% Jelly 5 ML TUBE ONE (13:26)
[2021-06-10] MEDS ORDERED: PHENYLEPHRINE-NS 100 MCG/ML 10 ML SYRINGE ONE (13:35)
[2021-06-10] MEDS ORDERED: PROPOFOL 200 MG/20 ML VIAL ONE (13:35)
[2021-06-10] MEDS ORDERED: Bupivacaine HCl 0.5%/Epinephrine 1:200,000/PF 30 ml Vial ONE (13:35)
[2021-06-10] MEDS ORDERED: Heparin 1,000 UNITS/ML VIAL ONE (15:47)
== END 2021-06-10 16:12 | disposition home or self-care (01) ==
LOC: SDC 11:14
PROVIDERS: ATTEND Specialist
PROC: 031C0ZF Bypass Left Radial Artery to Lower Arm Vein, Open Approach (ICD-10-PCS; principal; 2021-06-10)
DX: I13.2 Hypertensive heart and chronic kidney disease with heart failure and with stage 5 chronic kidney disease, or end stage renal disease (principal); E13.22 Other specified diabetes mellitus with diabetic chronic kidney disease; N18.6 End stage renal disease; I50.32 Chronic diastolic (congestive) heart failure; N25.81 Secondary hyperparathyroidism of renal origin; E78.2 Mixed hyperlipidemia; I25.10 Atherosclerotic heart disease of native coronary artery without angina pectoris; G89.4 Chronic pain syndrome; M17.12 Unilateral primary osteoarthritis, left knee; E13.51 Other specified diabetes mellitus with diabetic peripheral angiopathy without gangrene; I70.213 Atherosclerosis of native arteries of extremities with intermittent claudication, bilateral legs; Z79.82 Long term (current) use of aspirin; Z79.84 Long term (current) use of oral hypoglycemic drugs; Z79.899 Other long term (current) drug therapy; Z95.1 Presence of aortocoronary bypass graft; Z99.2 Dependence on renal dialysis
CPT/HCPCS: J1644; J2704; J2720; J3010; S0020

== ENCOUNTER 2021-10-12 15:23 | Emergency (ER) | payer MEDICARE ==
[2021-10-12 15:56] LABS: #Basophils 0.1 thou/uL (0.0-0.2); #Lymphocytes 1.2 thou/uL (1.20-3.40); #Monocytes 1.2 thou/uL (0.11-0.59); #Neutrophils 7.2 thou/uL (1.40-6.50); %Basophils 0.6 % (0.0-1.0); %Eosinophils 0.5 % (0.0-10.0); %Lymphocytes 12.2 % (21.0-51.0); %Monocytes 12.2 % (0.0-10.0); %Neutrophils 74.5 % (42.0-75.0); Hemoglobin 10.6 g/dL (14.0-18.0); Mean Corpuscular HGB CONC 34.4 g/dL (32.0-36.0); Mean Corpuscular Hemoglobin 31.4 pg (27.0-31.0); Mean Corpuscular Volume 91.4 fL (78.0-98.0); Mean Platelet Volume 6.7 fL (7.4-10.4); Platelet Count 270 thou/uL (130-400); RBC Distribution Width 13.2 % (11.5-14.5); Red Blood Cell (RBC) Count 3.38 mill/uL (4.70-6.10); White Blood Cell (WBC) Count 9.6 thou/uL (4.8-10.8)
[2021-10-12 16:19] LABS: ALT (SGPT) 20 U/L (8-55); AST (SGOT) 20 U/L (5-34); Albumin 4.4 g/dL (3.4-4.8); Alkaline Phosphatase 100 U/L (40-110); Anion Gap 18 mmol/L (10-20); BUN (Urea Nitrogen) 82 mg/dL (8.4-25.7); Bilirubin, Total 1.1 mg/dL (0.2-1.2); Calc. Creatinine Clearance 0 mL/min (70-130); Calcium 9.5 mg/dL (7.8-10.44); Carbon Dioxide 20 mmol/L (23-31); Chloride 99 mmol/L (98-107); Globulin 3.2 g/dL (2.4-3.5); Glucose 185 mg/dL (83-110); Potassium 4.4 mmol/L (3.5-5.1); Protein, Total 7.6 g/dL (5.8-8.1); Sodium 133 mmol/L (136-145)
[2021-10-12 16:41] LABS: CKMB 1.7 ng/mL (0-6.6)
== END 2021-10-12 16:11 | disposition home or self-care (01) ==
LOC: ERS 15:23
DX: I13.0 Hypertensive heart and chronic kidney disease with heart failure and stage 1 through stage 4 chronic kidney disease, or unspecified chronic kidney disease (principal); I50.9 Heart failure, unspecified; E11.22 Type 2 diabetes mellitus with diabetic chronic kidney disease; N18.9 Chronic kidney disease, unspecified; K59.00 Constipation, unspecified; Z99.2 Dependence on renal dialysis; E78.5 Hyperlipidemia, unspecified; E78.00 Pure hypercholesterolemia, unspecified; Z79.82 Long term (current) use of aspirin; Z79.899 Other long term (current) drug therapy
CPT/HCPCS: 71045; 80053; 82553; 83880; 84484; 85025; 93005

== ENCOUNTER 2021-10-13 03:18 | Emergency (ER) | payer MEDICARE ==
[2021-10-13] MEDS ORDERED: Ondansetron ODT 4 MG TAB ONE (03:28)
[2021-10-13 04:33] LABS: #Lymphocytes 0.6 thou/uL (1.20-3.40); #Monocytes 0.8 thou/uL (0.11-0.59); %Basophils 0.2 % (0.0-1.0); %Eosinophils 0.3 % (0.0-10.0); %Lymphocytes 6.6 % (21.0-51.0); %Monocytes 9.6 % (0.0-10.0); %Neutrophils 83.4 % (42.0-75.0); Hemoglobin 10.4 g/dL (14.0-18.0); Mean Corpuscular HGB CONC 33.6 g/dL (32.0-36.0); Mean Corpuscular Hemoglobin 30.7 pg (27.0-31.0); Mean Corpuscular Volume 91.5 fL (78.0-98.0); Mean Platelet Volume 6.8 fL (7.4-10.4); Platelet Count 249 thou/uL (130-400); RBC Distribution Width 13.2 % (11.5-14.5); Red Blood Cell (RBC) Count 3.37 mill/uL (4.70-6.10); White Blood Cell (WBC) Count 8.4 thou/uL (4.8-10.8)
[2021-10-13 05:03] LABS: ALT (SGPT) 22 U/L (8-55); AST (SGOT) 21 U/L (5-34); Albumin 4.4 g/dL (3.4-4.8); Alkaline Phosphatase 97 U/L (40-110); Anion Gap 21 mmol/L (10-20); BUN (Urea Nitrogen) 86 mg/dL (8.4-25.7); Bilirubin, Total 1.1 mg/dL (0.2-1.2); Calc. Creatinine Clearance 0 mL/min (70-130); Calcium 9.4 mg/dL (7.8-10.44); Carbon Dioxide 17 mmol/L (23-31); Chloride 99 mmol/L (98-107); Globulin 3.2 g/dL (2.4-3.5); Glucose 249 mg/dL (83-110); Potassium 4.7 mmol/L (3.5-5.1); Protein, Total 7.6 g/dL (5.8-8.1); Sodium 132 mmol/L (136-145)
[2021-10-13 06:45] LABS: CKMB 1.6 ng/mL (0-6.6)
== END 2021-10-13 14:42 | disposition home or self-care (01) ==
LOC: ERS 03:18
DX: I13.0 Hypertensive heart and chronic kidney disease with heart failure and stage 1 through stage 4 chronic kidney disease, or unspecified chronic kidney disease (principal); I50.9 Heart failure, unspecified; N18.9 Chronic kidney disease, unspecified; E11.22 Type 2 diabetes mellitus with diabetic chronic kidney disease; E87.70 Fluid overload, unspecified; Z79.899 Other long term (current) drug therapy
CPT/HCPCS: 36415; 80053; 82553; 83880; 84484; 85025; 93005; Q0162

== ENCOUNTER 2023-08-27 17:04 | Inpatient (IN) | payer MEDICARE, OTHER ==
[~2023-08-27 17:04] MED LIST: Heparin 10,000 UNITS/ 10 ML VIAL ONE
[2023-08-27 17:20] LABS: #Basophils 0.1 thou/uL (0.0-0.2); #Eosinphils 0.1 thou/uL (0.0-0.7); #Monocytes 0.4 thou/uL (0.11-0.59); #Neutrophils 4.2 thou/uL (1.40-6.50); %Basophils 0.9 % (0.0-1.0); %Eosinophils 2.2 % (0.0-10.0); %Lymphocytes 17.3 % (21.0-51.0); %Monocytes 7.5 % (0.0-10.0); %Neutrophils 71.8 % (42.0-75.0); Hematocrit 28.8 % (42.0-52.0); Hemoglobin 9.7 g/dL (14.0-18.0); Mean Corpuscular HGB CONC 33.7 g/dL (32.0-36.0); Mean Corpuscular Hemoglobin 31.7 pg (27.0-31.0); Mean Corpuscular Volume 94.1 fl (78.0-98.0); Platelet Count 245 10x3/uL (130-400); RBC Distribution Width 17.2 % (11.5-14.5); Red Blood Cell (RBC) Count 3.06 mill/uL (4.70-6.10); White Blood Cell (WBC) Count 5.8 10x3/uL (4.8-10.8)
[2023-08-27 17:33] LABS: INR-International Normal Ratio 1.1
[2023-08-27 17:38] LABS: PTT 145.4 sec (22.9-36.1)
[2023-08-27 17:43] LABS: ALT (SGPT) 8 U/L (8-55); AST (SGOT) 14 U/L (5-34); Alkaline Phosphatase 119 U/L (40-110); Anion Gap 20 mmol/L (10-20); BUN (Urea Nitrogen) 42 mg/dL (8.4-25.7); Bilirubin, Total 0.4 mg/dL (0.2-1.2); Calc. Creatinine Clearance 0 mL/min (70-130); Calcium 8.7 mg/dL (7.8-10.44); Carbon Dioxide 21 mmol/L (23-31); Chloride 100 mmol/L (98-107); Estimated GFR 4; Globulin 2.4 g/dL (2.4-3.5); Glucose 267 mg/dL (83-110); Potassium 4.5 mmol/L (3.5-5.1); Protein, Total 6.4 g/dL (5.8-8.1); Sodium 136 mmol/L (136-145)
[2023-08-27 17:47] LABS: Troponin I 0.035 ng/mL (< 0.028)
[2023-08-27] MEDS ORDERED: cefTRIAXone (ROCEPHIN) 1 GM VIAL ONE (18:02)
[2023-08-27] MEDS ORDERED: Sodium Chloride 0.9% 100 ML ONE (18:02)
[2023-08-27] MEDS ORDERED: Azithromycin 500 MG VIAL ONE (19:34)
[2023-08-27] MEDS ORDERED: Acetaminophen 325 MG TAB PO PRN (19:44)
[2023-08-27] MEDS ORDERED: Ondansetron PF 4 MG/2 ML Vial IVP PRN (19:44)
[2023-08-27] MEDS ORDERED: Dextrose 50% Abboject 50 ML SYRINGE SLOW IVP PRN (19:49)
[2023-08-27] MEDS ORDERED: Dextrose 5% in Water 1,000 ML IV PRN (19:49)
[2023-08-27] MEDS ORDERED: Glucagon 1 MG/ML KIT IM PRN (19:49)
[2023-08-27] MEDS ORDERED: HumaLOG 300 UNITS/3 ML VIAL SC PRN ×2 (19:49)
[2023-08-27] MEDS ORDERED: Nitroglycerin 50 MG/250 ML BOT 250 ML IVPB SCH (21:00)
[2023-08-27] MEDS ORDERED: Heparin 10,000 UNITS/ 10 ML VIAL SLOW IVP SCH ×2 (21:00→21:30)
[2023-08-27] MEDS ORDERED: Heparin 25,000 units/D5W 500 ML IVPB SCH ×2 (21:00→21:30)
[2023-08-27] MEDS ORDERED: Nitroglycerin 2% Ointment 1 INCH/1 GM Packet TOP SCH (22:00)
[2023-08-27] MEDS ORDERED: Nitroglycerin 2% Ointment 1 INCH/1 GM Packet ONE (22:02)
[2023-08-27 22:35] LABS: Troponin I 0.113 ng/mL (< 0.028)
[2023-08-28] MEDS: Nitroglycerin 2% Ointment 1 INCH/1 GM Packet TOP SCH ×4 (00:14→21:28)
[2023-08-28 02:34] VITALS: BMI 27.6
[2023-08-28 07:04] LABS: #Basophils 0.1 thou/uL (0.0-0.2); #Eosinphils 0.2 thou/uL (0.0-0.7); #Monocytes 0.9 thou/uL (0.11-0.59); #Neutrophils 5.8 thou/uL (1.40-6.50); %Basophils 0.8 % (0.0-1.0); %Eosinophils 2.6 % (0.0-10.0); %Lymphocytes 18.3 % (21.0-51.0); %Neutrophils 68.1 % (42.0-75.0); Hematocrit 29.6 % (42.0-52.0); Hemoglobin 9.7 g/dL (14.0-18.0); Mean Corpuscular HGB CONC 32.8 g/dL (32.0-36.0); Mean Corpuscular Hemoglobin 31.3 pg (27.0-31.0); Mean Corpuscular Volume 95.5 fl (78.0-98.0); Mean Platelet Volume 9.4 fL (7.4-10.4); Platelet Count 257 10x3/uL (130-400); RBC Distribution Width 17.2 % (11.5-14.5); White Blood Cell (WBC) Count 8.5 10x3/uL (4.8-10.8)
[2023-08-28 07:30] LABS: ALT (SGPT) 7 U/L (8-55); AST (SGOT) 11 U/L (5-34); Albumin 3.8 g/dL (3.4-4.8); Alkaline Phosphatase 114 U/L (40-110); Anion Gap 17 mmol/L (10-20); BUN (Urea Nitrogen) 46 mg/dL (8.4-25.7); Bilirubin, Total 0.4 mg/dL (0.2-1.2); Calc. Creatinine Clearance 6 mL/min (70-130); Carbon Dioxide 24 mmol/L (23-31); Chloride 102 mmol/L (98-107); Estimated GFR 4; Globulin 2.7 g/dL (2.4-3.5); Glucose 79 mg/dL (83-110); Potassium 3.9 mmol/L (3.5-5.1); Protein, Total 6.5 g/dL (5.8-8.1); Sodium 139 mmol/L (136-145)
[2023-08-28] MEDS ORDERED: Heparin 10,000 UNITS/ 10 ML VIAL ONE (08:36)
[2023-08-28] MEDS ORDERED: Atorvastatin Calcium 40 MG TAB PO SCH ×2 (09:00→21:00)
[2023-08-28] MEDS: Isosorbide Mononitrate 30 MG ER.TAB PO SCH (09:31)
[2023-08-28] MEDS: Carvedilol 6.25 MG TAB PO SCH ×2 (09:31→21:27)
[2023-08-28] MEDS: Clopidogrel Bisulfate 75 MG TAB PO SCH (09:32)
[2023-08-28] MEDS: Aspirin 81 mg Enteric Coated Tablet PO SCH (09:32)
[2023-08-28] MEDS ORDERED: Allopurinol 300 MG TAB PO SCH (10:00)
[2023-08-28 13:48] LABS: SARS-CoV-2 NAA Rapid Test Not Detected (NotDetected)
[2023-08-28] MEDS ORDERED: cefTRIAXone\\ROCEPHIN 1 GM in Sodium Chloride 0.9% 100 ML IVPB SCH (18:00)
[2023-08-28] MEDS ORDERED: Azithromycin 500 MG in Sodium Chloride 0.9% 250 ML 250 ML IVPB SCH (20:00)
[2023-08-28] MEDS ORDERED: Montelukast Sodium 10 mg Tablet PO SCH (21:00)
[2023-08-29 05:13] LABS: #Basophils 0.1 thou/uL (0.0-0.2); #Eosinphils 0.2 thou/uL (0.0-0.7); #Monocytes 0.8 thou/uL (0.11-0.59); #Neutrophils 3.9 thou/uL (1.40-6.50); %Basophils 1.1 % (0.0-1.0); %Eosinophils 3.5 % (0.0-10.0); %Lymphocytes 20.7 % (21.0-51.0); %Monocytes 12.7 % (0.0-10.0); %Neutrophils 61.7 % (42.0-75.0); Hematocrit 29.6 % (42.0-52.0); Hemoglobin 9.7 g/dL (14.0-18.0); Mean Corpuscular HGB CONC 32.8 g/dL (32.0-36.0); Mean Corpuscular Hemoglobin 31.3 pg (27.0-31.0); Mean Corpuscular Volume 95.5 fl (78.0-98.0); Mean Platelet Volume 9.4 fL (7.4-10.4); Platelet Count 254 10x3/uL (130-400); RBC Distribution Width 17.3 % (11.5-14.5); White Blood Cell (WBC) Count 6.2 10x3/uL (4.8-10.8)
[2023-08-29 05:42] LABS: ALT (SGPT) Less than 7 U/L (8-55); AST (SGOT) 11 U/L (5-34); Albumin 3.7 g/dL (3.4-4.8); Alkaline Phosphatase 114 U/L (40-110); Anion Gap 13 mmol/L (10-20); BUN (Urea Nitrogen) 32 mg/dL (8.4-25.7); Bilirubin, Total 0.5 mg/dL (0.2-1.2); Calc. Creatinine Clearance 7 mL/min (70-130); Calcium 8.9 mg/dL (7.8-10.44); Carbon Dioxide 27 mmol/L (23-31); Chloride 99 mmol/L (98-107); Estimated GFR 5; Globulin 2.6 g/dL (2.4-3.5); Glucose 70 mg/dL (83-110); Potassium 3.7 mmol/L (3.5-5.1); Protein, Total 6.3 g/dL (5.8-8.1); Sodium 135 mmol/L (136-145)
[2023-08-29 08:31] LABS: Legionella Urinary Ag Negative (Negative)
[2023-08-29 08:32] LABS: Strep pneumo Urine Ag NEGATIVE (NEGATIVE)
[2023-08-29] MEDS ORDERED: NIFEdipine XL 30 MG ER.TAB PO SCH (09:00)
[2023-08-29] MEDS ORDERED: Allopurinol 300 MG TAB PO SCH (09:00)
[2023-08-29] MEDS: Nitroglycerin 2% Ointment 1 INCH/1 GM Packet TOP SCH (09:14)
[2023-08-29] MEDS: Isosorbide Mononitrate 30 MG ER.TAB PO SCH (09:17)
[2023-08-29] MEDS: Carvedilol 6.25 MG TAB PO SCH (09:17)
[2023-08-29] MEDS: Clopidogrel Bisulfate 75 MG TAB PO SCH (09:18)
[2023-08-29] MEDS: Aspirin 81 mg Enteric Coated Tablet PO SCH (09:18)
[2023-08-29 12:08] VITALS: TEMP 98.5
[2023-08-29 15:07] VITALS: BP 138/69
[2023-08-29] MEDS ORDERED: Carvedilol 6.25 MG TAB PO SCH (21:00)
== END 2023-08-29 15:05 | disposition home or self-care (01) | DRG 304 ==
LOC: ERS 17:04 → 2SE 19:25
PROVIDERS: ADMIT Internal Medicine; ATTEND Family Medicine
DX: I16.0 Hypertensive urgency (principal); J18.9 Pneumonia, unspecified organism; N18.6 End stage renal disease; I47.19 Other supraventricular tachycardia; I24.89 Other forms of acute ischemic heart disease; I12.0 Hypertensive chronic kidney disease with stage 5 chronic kidney disease or end stage renal disease; I25.10 Atherosclerotic heart disease of native coronary artery without angina pectoris; E11.22 Type 2 diabetes mellitus with diabetic chronic kidney disease; D63.1 Anemia in chronic kidney disease; E11.649 Type 2 diabetes mellitus with hypoglycemia without coma; M10.9 Gout, unspecified; G47.33 Obstructive sleep apnea (adult) (pediatric); Z99.2 Dependence on renal dialysis; Z88.5 Allergy status to narcotic agent; Z79.84 Long term (current) use of oral hypoglycemic drugs; Z79.899 Other long term (current) drug therapy; Z79.82 Long term (current) use of aspirin; Z95.1 Presence of aortocoronary bypass graft; Z82.49 Family history of ischemic heart disease and other diseases of the circulatory system; Z11.52 Encounter for screening for COVID-19; Z53.8 Procedure and treatment not carried out for other reasons
CPT/HCPCS: 0241U; 36415; 36416; 71045; 80053; 83605; 83690; 83735; 83880; 84484; 85025; 85610; 85730; 86850; 86900; 86901; 87040; 87449; 87899; 93005; 93010; 96365; 96366; 96368; 96374; 96375; J0456; J0696; J1644; J1815; J3490; J7050

== ENCOUNTER 2023-10-06 01:22 | Emergency (ER) | payer OTHER | END 2023-10-06 02:53 | disposition home or self-care (01) | LOC: ERS 01:22 | DX: T82.838A Hemorrhage due to vascular prosthetic devices, implants and grafts, initial encounter (principal); I13.2 Hypertensive heart and chronic kidney disease with heart failure and with stage 5 chronic kidney disease, or end stage renal disease; E11.22 Type 2 diabetes mellitus with diabetic chronic kidney disease; N18.6 End stage renal disease; I50.9 Heart failure, unspecified; I25.2 Old myocardial infarction; Z99.2 Dependence on renal dialysis | CPT/HCPCS: 99283 ==

== ENCOUNTER 2023-10-14 16:00 | Outpatient (CLI) | payer OTHER | END 2023-10-14 16:01 | disposition home or self-care (01) | LOC: SLEEPLAB 16:00 | PROVIDERS: ATTEND Family Medicine | DX: G47.33 Obstructive sleep apnea (adult) (pediatric) (principal); G47.61 Periodic limb movement disorder; R09.89 Other specified symptoms and signs involving the circulatory and respiratory systems; R06.83 Snoring | CPT/HCPCS: 95810 ==